=== PATIENT | female | born 1940 | race Caucasian/White ===

== ENCOUNTER 2023-10-16 07:41 | Emergency (ER) | payer MEDICARE, OTHER, SELFPAY ==
[2023-10-16] VITALS (21 sets, daily range): BP systolic 115–146; BP diastolic 55–78; PULSE 78–93; RESP 14–23; TEMP 36.8; O2SAT 93–98; BMI 25.6
[2023-10-16 08:10] LABS: Add Manual Diff / Slide Review NO; Basophils Absolute Auto 200 /uL (0-100); Basophils Percent Auto 1.2 % (0-2); Eosinophils Absolute Auto 100 /uL (0-450); Eosinophils Percent Auto 0.4 % (2-4); Hematocrit 35.4 % (36-46); Hemoglobin 12.2 g/dL (12.0-16.0); Lymphocytes Absolute Auto 1800 /uL (1100-4500); Lymphocytes Percent Auto 12.8 % (25-40); Mean Corpuscular HGB Conc 34.5 % (30-36); Mean Corpuscular Volume 87.1 fL (80-100); Monocytes Absolute Auto 400 /uL (0-900); Monocytes Percent Auto 2.8 % (3-14); Neutrophils Absolute Auto 11900 /uL (1500-7000); Neutrophils Percent Auto 82.8 % (50-75); Platelet Count 405 X10^3/uL (150-400); Red Blood Cell Count 4.06 X10^6/uL (4.0-5.2); Red Cell Distribution Width 12.5 % (11.6-14.8); White Blood Cell Count 14.3 X10^3/uL (4.5-11.0)
[2023-10-16] MEDS: ONDANSETRON 4 MG/2 ML INJ IV ×2 (08:12→09:20)
[2023-10-16 08:16] LABS: Alanine Aminotransferase 15 IU/L (<35); Albumin 4.3 g/dL (3.5-5.0); Albumin Globulin Ratio 1.2 (1.0-2.8); Alkaline Phosphatase 98 U/L (38-126); Aspartate Aminotransferase 28 IU/L (14-36); Blood Urea Nitrogen 24 mg/dL (7-17); Carbon Dioxide 24 mmol/L (22-32); Chloride 97 mmol/L (98-107); Estimated Glomerular Filt Rate > 60 mL/min (>60); Globulin 3.6 g/dL (1.7-4.1); Glucose 154 mg/dL (80-110); Potassium 4.3 mmol/L (3.4-5.1); Sodium 131 mmol/L (137-145); Total Protein 7.9 g/dL (6.3-8.2)
[2023-10-16 08:19] LABS: HEMOLYSIS 106 (0-50)
--- NOTE | 2023-10-16 08:21 | DI.CT.S_ITS ---
PROCEDURE: CT ABDOMEN PELVIS W CON INDICATIONS: vomiting TECHNIQUE: After the administration of intravenous contrast, axial sections acquired from the lung bases to the pubic symphysis. Coronal and sagittal reformats were performed. For radiation dose reduction, the following was used: automated exposure control, adjustment of mA and/or kV according to patient size. COMPARISON: None. FINDINGS: Image quality: Diagnostic. Lower Chest: Moderate to large hiatal hernia ABDOMEN: Liver: No solid mass. Gallbladder: Gallbladder surgically absent Biliary ducts: No biliary dilation. Pancreas: No ductal dilation. Spleen: Size is within normal limits. Adrenal Glands: No adrenal nodules. Kidneys and Ureters: No hydronephrosis. No solid mass. No complex renal cystic lesion which requires follow up. Stomach and Bowel: No evidence of obstruction. Prominent diverticula with acute diverticulitis of the descending colon and extending from the mid descending colon through the sigmoid colon. There is mild hyperemia surrounding descending colon without organized abscess or fluid collection. There is some adjacent small foci of air immediately along the colon which may represent small diverticulum versus contained perforation. There is no free air along the anterior abdominal wall or along the diaphragm. The appendix is normal Peritoneum: No free air. Ventral Wall: No significant ventral hernia. Abdominal Nodes: No retroperitoneal or mesenteric adenopathy by size criteria. Vessels: Aorta and inferior vena cava are normal in size. PELVIS: Pelvic Organs: Unremarkable. Bladder: No bladder wall thickening, accounting for underdistention. Bladder, correlate for instrumentation. Pelvic Nodes: No enlarged lymph nodes. Miscellaneous: No inguinal hernias are seen. Bones: No aggressive osseous abnormality. IMPRESSION: Acute diverticulitis of the sigmoid colon. Moderate hiatal hernia. Dictated by: James Dumont M.D. on 10/16/2023 at 8:20 Approved by: James Dumont M.D. on 10/16/2023 at 8:27
--- NOTE | 2023-10-16 08:21 | DI.RAD.S_ITS ---
PROCEDURE: XR CHEST 1V INDICATIONS: chest pain TECHNIQUE: One view of the chest was acquired. COMPARISON: None. FINDINGS: Surgical changes and devices: Surgical clips in the left chest wall. Lungs and pleura: Lungs are clear. No pleural effusions or pneumothorax. Mediastinum: Mediastinal contours appear normal. Heart size is normal. Bones and chest wall: No suspicious bony lesions. Overlying soft tissues appear unremarkable. IMPRESSION: No acute cardiopulmonary abnormality is seen. Dictated by: James Dumont M.D. on 10/16/2023 at 8:16 Approved by: James Dumont M.D. on 10/16/2023 at 8:19
[2023-10-16] MEDS: SODIUM CHLORIDE 0.9% 1,000 ML 1000 ML IV (08:24)
[2023-10-16] MEDS: PANTOPRAZOLE 40 MG VIAL IV (08:24)
--- NOTE | 2023-10-16 08:41 | ED_ITS ---
HPI - Nausea/Vomiting/Diarrhea General Chief complaint: Nausea/Vomiting/Diarrhea Stated complaint: vomitting cant keep anything down Time Seen by Provider: 10/16/23 08:10 Source: patient Mode of arrival: Family Vehicle History of Present Illness HPI Narrative: Patient is an 82-year-old female history of hypertension hyperlipidemia presenting today with nausea vomiting. She reports that she started throwing up middle last night has been unable to stop. No diarrhea. Denies any dizziness or lightheadedness still actively vomiting here in the ED. she reports that she has had a cholecystectomy but no other surgery. She denies any chest pain or palpitations no shortness of breath. But he is unable to stop vomiting Related Data Previous Rx's Medication Instructions Recorded amoxicillin 875 mg-potassium 1 tab PO BID #20 tabs 10/16/23 clavulanate 125 mg tablet amoxicillin 875 mg-potassium 1 tab PO BID #20 tabs 10/16/23 clavulanate 125 mg tablet prochlorperazine maleate 5 mg 5 mg PO Q8H PRN nausea and 10/16/23 tablet vomiting #10 tabs prochlorperazine maleate 5 mg 5 mg PO TID PRN nausea and 10/16/23 tablet (Compazine) vomiting #14 tabs Allergies Allergy/AdvReac Type Severity Reaction Status Date / Time metoclopramide [From Reglan] AdvReac Vomiting Verified 10/16/23 08:00 Patient History Social History Smoking Status: Never smoker Smoking Status: Never smoker alcohol intake frequency: 0-2 drinks per day Substance Use Type: does not use Exam Initial Vital Signs Initial Vital Signs: Vital Signs Temperature 98.3 F 10/16/23 07:56 Pulse Rate 78 10/16/23 07:56 Respiratory Rate 14 10/16/23 07:56 Blood Pressure 123/72 10/16/23 07:56 Pulse Oximetry 96 10/16/23 07:56 Oxygen Delivery Method Room Air 10/16/23 07:56 GENERAL: Alert 82-year-old female appears to not feel well actively dry heaving and vomiting and in no acute distress. HEENT: Head atraumatic,EOMI, pupils reactive, face symmetric, moist mucous membranes CARDIOVASCULAR: Regular rate and rhythm without murmurs, rubs or gallops. RESPIRATORY: Breath sounds equal bilaterally, no wheezes rales or rhonchi. ABDOMEN: Soft, soft nondistended diffusely mildly tender EXTREMITIES: Normal range of motion, no clubbing or edema. Neurovascularly intact NEUROLOGICAL: Alert and oriented x4.Normal gait and speech. SKIN: Warm, dry, no laceration, no petechiae, no rashes or lesions. Course Orders Ordered: ED Orders 10/16/23 09:24 Urine Culture Stat Urine Microscopic Stat Discontinued Medications Diphenhydramine HCl (Diphenhydramine 50 Mg/Ml Vial) 25 mg IV NOW ONE Stop: 10/16/23 11:55 Last Admin: 10/16/23 12:01 Dose: 25 mg Documented By: Sodium Chloride (Normal Saline 0.9%) 1,000 mls @ 1,000 mls/hr IV BOLUS ONE Stop: 10/16/23 09:21 Last Infusion: 10/16/23 09:33 Dose: Infused Documented By: Admin: 10/16/23 08:24 Dose: 1,000 mls/hr Documented By: Piperacillin Sod/Tazobactam (Sod 4.5 gm/ Sodium Chloride) 100 mls @ 200 mls/hr IV NOW ONE Stop: 10/16/23 09:53 Last Infusion: 10/16/23 11:10 Dose: Infused Documented By: Admin: 10/16/23 10:05 Dose: 200 mls/hr Documented By: Metronidazole (Flagyl) 500 mg in 100 mls @ 100 mls/hr IV NOW ONE Stop: 10/16/23 10:51 Last Infusion: 10/16/23 11:31 Dose: Infused Documented By: Admin: 10/16/23 10:28 Dose: 100 mls/hr Documented By: Lorazepam (Lorazepam 2 Mg/Ml Inj) 0.5 mg IV NOW ONE Stop: 10/16/23 09:14 Last Admin: 10/16/23 09:20 Dose: 0.5 mg Documented By: Ondansetron HCl (Ondansetron 4 Mg/2 Ml Inj) 4 mg IV NOW ONE Stop: 10/16/23 08:08 Last Admin: 10/16/23 08:12 Dose: 4 mg Documented By: Ondansetron HCl (Ondansetron 4 Mg/2 Ml Inj) 4 mg IV NOW ONE Stop: 10/16/23 09:15 Last Admin: 10/16/23 09:20 Dose: 4 mg Documented By: Pantoprazole Sodium (Pantoprazole 40 Mg Vial) 40 mg IV NOW ONE Stop: 10/16/23 08:22 Last Admin: 10/16/23 08:24 Dose: 40 mg Documented By: Prochlorperazine (Prochlorperazine 10 Mg/2 Ml Vial) 10 mg IV NOW ONE Stop: 10/16/23 11:55 Last Admin: 10/16/23 12:01 Dose: 10 mg Documented By: Vital Signs Vital signs: Vital Signs - 8 hr 10/16/23 10:25 10/16/23 10:25 10/16/23 10:30 Pulse Rate 93 H Respiratory Rate Blood Pressure 134/60 Pulse Oximetry 94 96 Oxygen Delivery Method 10/16/23 10:30 10/16/23 11:00 10/16/23 11:00 Pulse Rate 85 Respiratory Rate Blood Pressure 131/60 130/59 L Pulse Oximetry Oxygen Delivery Method 10/16/23 11:30 10/16/23 11:30 10/16/23 12:00 Pulse Rate 88 Respiratory Rate Blood Pressure 137/78 145/65 H Pulse Oximetry 95 Oxygen Delivery Method 10/16/23 12:00 10/16/23 12:30 10/16/23 12:31 Pulse Rate 89 89 Respiratory Rate 20 22 Blood Pressure 115/55 L Pulse Oximetry 96 94 Oxygen Delivery Method 10/16/23 12:31 10/16/23 13:00 10/16/23 13:28 Pulse Rate 89 89 85 Respiratory Rate 20 Blood Pressure Pulse Oximetry 94 96 Oxygen Delivery Method 10/16/23 13:28 10/16/23 13:30 10/16/23 13:30 Pulse Rate 89 Respiratory Rate 23 Blood Pressure 127/60 126/56 L Pulse Oximetry 95 Oxygen Delivery Method Room Air 10/16/23 14:00 10/16/23 14:00 10/16/23 14:30 Pulse Rate 83 85 Respiratory Rate 21 Blood Pressure 137/58 L Pulse Oximetry 95 96 Oxygen Delivery Method 10/16/23 14:30 Pulse Rate Respiratory Rate Blood Pressure 129/59 L Pulse Oximetry Oxygen Delivery Method MDM - Nausea/Vomiting/Diarrhea Lab Data 10/16/23 07:58 10/16/23 07:58 Labs: Lab Results 10/16/23 10/16/23 10/16/23 Range/Units 07:50 07:58 09:24 WBC 14.3 H (4.5-11.0) X10^3/uL RBC 4.06 (4.0-5.2) X10^6/uL Hgb 12.2 (12.0-16.0) g/dL Hct 35.4 L (36-46) % MCV 87.1 (80-100) fL MCH 30.0 (26-34) PG MCHC 34.5 (30-36) % RDW 12.5 (11.6-14.8) % Plt Count 405 H (150-400) X10^3/uL Neut % (Auto) 82.8 H (50-75) % Lymph % (Auto) 12.8 L (25-40) % Gaston % (Auto) 2.8 L (3-14) % Eos % (Auto) 0.4 L (2-4) % Baso % (Auto) 1.2 (0-2) % Neut # (Auto) 31530 H (4921-0435) /uL Lymph # (Auto) 1800 (5753-0319) /uL Gaston # (Auto) 400 (0-900) /uL Eos # (Auto) 100 (0-450) /uL Baso # (Auto) 200 H (0-100) /uL Sodium 131 L (137-145) mmol/L Potassium 4.3 (3.4-5.1) mmol/L Chloride 97 L (98-107) mmol/L Carbon Dioxide 24 (22-32) mmol/L BUN 24 H (7-17) mg/dL Creatinine 0.80 (0.52-1.04) mg/dL Estimated GFR > 60 (>60) mL/min BUN/Creatinine Ratio 30.0 H (6-22) Glucose 154 H (80-110) mg/dL Lactate 2.3 H (0.7-2.1) mmol/L Calcium 9.0 (8.4-10.2) mg/dL Total Bilirubin 1.0 (0.2-1.3) mg/dL AST 28 (14-36) IU/L ALT 15 (<35) IU/L Alkaline Phosphatase 98 (38-126) U/L Total Creatine Kinase 106 (30-135) U/L Troponin I < 0.012 (0.01-0.034) ng/mL Total Protein 7.9 (6.3-8.2) g/dL Albumin 4.3 (3.5-5.0) g/dL Globulin 3.6 (1.7-4.1) g/dL Albumin/Globulin Ratio 1.2 (1.0-2.8) Lipase 69 (23-300) U/L Urine RBC 1-5/hpf (0-5/HPF) Urine WBC 5-10/hpf H (0-5/HPF) Ur Squamous Epith Cells None seen (0-5/HPF) Urine Bacteria Many (>30) H (None) Ur Culture Indicated? Specimen cultured Vol Urine Centrifuged 10ml (spun) 10/16/23 Range/Units 10:26 WBC (4.5-11.0) X10^3/uL RBC (4.0-5.2) X10^6/uL Hgb (12.0-16.0) g/dL Hct (36-46) % MCV (80-100) fL MCH (26-34) PG MCHC (30-36) % RDW (11.6-14.8) % Plt Count (150-400) X10^3/uL Neut % (Auto) (50-75) % Lymph % (Auto) (25-40) % Gaston % (Auto) (3-14) % Eos % (Auto) (2-4) % Baso % (Auto) (0-2) % Neut # (Auto) (8411-9275) /uL Lymph # (Auto) (7348-9250) /uL Gaston # (Auto) (0-900) /uL Eos # (Auto) (0-450) /uL Baso # (Auto) (0-100) /uL Sodium (137-145) mmol/L Potassium (3.4-5.1) mmol/L Chloride (98-107) mmol/L Carbon Dioxide (22-32) mmol/L BUN (7-17) mg/dL Creatinine (0.52-1.04) mg/dL Estimated GFR (>60) mL/min BUN/Creatinine Ratio (6-22) Glucose (80-110) mg/dL Lactate 1.6 (0.7-2.1) mmol/L Calcium (8.4-10.2) mg/dL Total Bilirubin (0.2-1.3) mg/dL AST (14-36) IU/L ALT (<35) IU/L Alkaline Phosphatase (38-126) U/L Total Creatine Kinase (30-135) U/L Troponin I (0.01-0.034) ng/mL Total Protein (6.3-8.2) g/dL Albumin (3.5-5.0) g/dL Globulin (1.7-4.1) g/dL Albumin/Globulin Ratio (1.0-2.8) Lipase (23-300) U/L Urine RBC (0-5/HPF) Urine WBC (0-5/HPF) Ur Squamous Epith Cells (0-5/HPF) Urine Bacteria (None) Ur Culture Indicated? Vol Urine Centrifuged Urine Dip Bedside Urine Glucose Negative Bedside Urine Bilirubin - Negative Bedside Urine Ketone +/- 5 Urine Specific Kempner 1.015 Bedside Urine Occult Blood + Bedside Urine pH 7.0 Bedside Urine Protein - Negative Bedside Urine Urobilinogen - Negative Bedside Urine Nitrite - Negative Bedside Urine Leukocytes - Negative Esterase Imaging Data CT scan - abdomen/pelvis: Radiologist's Impression: PROCEDURE: CT ABDOMEN PELVIS W CON INDICATIONS: vomiting TECHNIQUE: After the administration of intravenous contrast, axial sections acquired from the lung bases to the pubic symphysis. Coronal and sagittal reformats were performed. For radiation dose reduction, the following was used: automated exposure control, adjustment of mA and/or kV according to patient size. COMPARISON: None. FINDINGS: Image quality: Diagnostic. Lower Chest: Moderate to large hiatal hernia ABDOMEN: Liver: No solid mass. Gallbladder: Gallbladder surgically absent Biliary ducts: No biliary dilation. Pancreas: No ductal dilation. Spleen: Size is within normal limits. Adrenal Glands: No adrenal nodules. Kidneys and Ureters: No hydronephrosis. No solid mass. No complex renal cystic lesion which requires follow up. Stomach and Bowel: No evidence of obstruction. Prominent diverticula with acute diverticulitis of the descending colon and extending from the mid descending colon through the sigmoid colon. There is mild hyperemia surrounding descending colon without organized abscess or fluid collection. There is some adjacent small foci of air immediately along the colon which may represent small diverticulum versus contained perforation. There is no free air along the anterior abdominal wall or along the diaphragm. The appendix is normal Peritoneum: No free air. Ventral Wall: No significant ventral hernia. Abdominal Nodes: No retroperitoneal or mesenteric adenopathy by size criteria. Vessels: Aorta and inferior vena cava are normal in size. PELVIS: Pelvic Organs: Unremarkable. Bladder: No bladder wall thickening, accounting for underdistention. Bladder, correlate for instrumentation. Pelvic Nodes: No enlarged lymph nodes. Miscellaneous: No inguinal hernias are seen. Bones: No aggressive osseous abnormality. IMPRESSION: Acute diverticulitis of the sigmoid colon. Moderate hiatal hernia. Dictated by: James Dumont M.D. on 10/16/2023 at 8:20 ECG Data Interpretation: EKG 1. Sinus rhythm rate 88 IL interval 188 QRS [address] changes no T- wave inversions EKG 2. Sinus rhythm QTC 445 MDM Narrative Medical decision making narrative: Patient 82-year-old female presents with persistent vomiting and abdominal pain. She continues to vomit here in the ED mild abdominal pain and discomfort. Blood work does show leukocytosis 14.3, hemoglobin 12.2 hematocrit 35.4 platelets 405, sodium 131 potassium 4.3 chloride 97 carbon dioxide 24 BUN 24 creatinine 0.8 glucose 154 initial lactate 2.3 with repeat of 1.6, bilirubin AST ALT lipase within normal limits troponin negative Imaging reviewed chest x-ray no acute cardiopulmonary process CT does show acute diverticulitis with moderate hiatal hernia EKG reviewed initial EKG did show slightly prolonged QTC after Zofran. Repeat EKGs showed improved QTC Patient is found to have acute diverticulitis without complication although she is persistently vomiting. She reports that she had extrapyramidal side effects previously. However today she tolerated Compazine and Benadryl very well. She is also given Ativan which also seem to work for awhile. Patient is now tolerating fluids. This time no need for admission. Discussed with and patient if not tolerating medication or fluids then she would need admission. Patient received Flagyl Zosyn Zofran Protonix Ativan Compazine Benadryl in the ED and finally feeling better. Would hold off on fluoroquinolone secondary to QT prolongation Discharge Plan Departure Patient Disposition: Home Clinical Impression: Diverticulitis Instructions: Diverticulitis Activity Restrictions/Additional Instructions: *You have been diagnosed with diverticulitis *What to do: At this time you do have diverticulitis. This should get better with antibiotics. You may need to stay on a liquid diet for couple of days but you may try food and increase diet as tolerated as you see fit *Continue to take medications as directed--> RIte aid emani coronel Augmentin 875 twice a day for 10 days Compazine 10 mg every 6 hours for nausea or vomiting *Follow up with your primary care provider in 2-3 days or call [phone] *Return to ER if you should have persistent vomiting increasing pain not tolerating medication or any new, worsening or concerning symptoms Prescriptions: New amoxicillin-pot clavulanate 875-125 mg tablet 1 tab PO BID Qty: 20 0RF prochlorperazine maleate 5 mg tablet 5 mg PO Q8H PRN (Reason: nausea and vomiting) Qty: 10 0RF amoxicillin-pot clavulanate 875-125 mg tablet 1 tab PO BID Qty: 20 0RF prochlorperazine maleate [Compazine] 5 mg tablet 5 mg PO TID PRN (Reason: nausea and vomiting) Qty: 14 0RF Referrals: Matteo Begum MD [Primary Care Provider] - Stand Alone Forms: Patient Portal/API
[2023-10-16] MEDS: LORazepam 2 MG/ML INJ 0.5 MG IV (09:20)
[2023-10-16 09:27] LABS: Creatine Kinase 106 U/L (30-135); Lactate (Lactic Acid) 2.3 mmol/L (0.7-2.1); Lipase 69 U/L (23-300)
[2023-10-16 09:39] LABS: Troponin I < 0.012 ng/mL (0.01-0.034)
[2023-10-16 09:45] LABS: Bacteria Urine Many (>30); Culture Indicated Urine Specimen Cultured; RBC Urine 1-5/HPF (0-5/HPF); Squamous Epithelial Cell Urine None Seen (0-5/HPF); Urine Volume 10mL (spun); WBC Urine 5-10/HPF (0-5/HPF)
[2023-10-16] MEDS: PIPERACILLIN/TAZO 4.5 GM in SODIUM CHLORIDE 0.9% 100 ML IV (10:05)
[2023-10-16] MEDS: metroNIDAZOLE 500 MG/100 ML PIGGYBACK 100 MG IV (10:28)
[2023-10-16 10:51] LABS: Lactate 2HR (Lactic Acid Rflx) 1.6 mmol/L (0.7-2.1)
[2023-10-16] MEDS: PROCHLORPERAZINE 10 MG/2 ML VIAL IV (12:01)
[2023-10-16] MEDS: diphenhydrAMINE 50 MG/ML VIAL 25 MG IV (12:01)
== END 2023-10-16 15:08 | disposition home or self-care (01) ==
PROVIDERS: Emergency Provider Emergency Medicine; PCP Family Medicine
DX: K57.92 Diverticulitis of intestine, part unspecified, without perforation or abscess without bleeding (principal); R10.9 Unspecified abdominal pain
CPT/HCPCS: 36415; 71045; 74177; 80053; 81003; 81015; 82550; 83605; 83690; 84484; 85025; 87077; 87086; 87186; 93005; 96361; 96365; 96368; 96375; 96376; 99284; C9113; J0780; J1200; J2060; J2405; J2543; Q9967

== ENCOUNTER 2023-10-18 15:16 | Emergency (ER) | payer MEDICARE, OTHER, SELFPAY ==
[2023-10-18 15:41] VITALS: BP 126/59; PULSE 85; RESP 17; TEMP 36.5; O2SAT 95; BMI 27.1
[2023-10-18 18:51] VITALS: BP 136/83; PULSE 87; RESP 20; O2SAT 96
--- NOTE | 2023-10-18 19:00 | ED.RECABL ---
HPI - Recheck/Abnormal Lab/Rx General Chief Complaint: Recheck/Abnormal Lab/Rx Stated Complaint: Meds from ER yesterday produces diarrhea. Time Seen by Provider: 10/18/23 18:08 Source: patient Mode of arrival: Ambulatory History of Present Illness HPI narrative: Patient is an 82-year-old female he was seen in the emergency department approximately 48 hours ago for vomiting. She had a workup in his CT scan which was concerning for diverticulitis. She was started on Augmentin. Was also sent home on Compazine. She states she has no longer vomiting. She has no abdominal pain. No urinary symptoms. No fevers. She states that she was taken 2 doses of the Augmentin and after the dose this morning and after eating this morning she developed some diarrhea. This happened again after eating lunch today. She is here because of the diarrhea. No abdominal distention. Related Data Previous Rx's Medication Instructions Recorded amoxicillin 875 mg-potassium 1 tab PO BID #20 tabs 10/16/23 clavulanate 125 mg tablet amoxicillin 875 mg-potassium 1 tab PO BID #20 tabs 10/16/23 clavulanate 125 mg tablet prochlorperazine maleate 5 mg 5 mg PO Q8H PRN nausea and 10/16/23 tablet vomiting #10 tabs prochlorperazine maleate 5 mg 5 mg PO TID PRN nausea and 10/16/23 tablet (Compazine) vomiting #14 tabs Allergies Allergy/AdvReac Type Severity Reaction Status Date / Time metoclopramide [From Reglan] AdvReac Vomiting Verified 10/18/23 15:41 Review of Systems Constitutional Constitutional: Reports system reviewed and no additional complaints, except as documented Cardiovascular Cardiovascular: Reports system reviewed and no additional complaints, except as documented Respiratory Respiratory: Reports system reviewed and no additional complaints, except as documented Gastrointestinal Gastrointestinal: Reports system reviewed and no additional complaints, except as documented Genitourinary Genitourinary: Reports system reviewed and no additional complaints, except as documented Neurologic Neurologic: Reports system reviewed and no additional complaints, except as documented Hematologic/Lymphatic On Anticoagulants: No Patient History Social History Smoking Status: Never smoker Smoking Status: Never smoker alcohol intake frequency: 0-2 drinks per day Substance Use Type: does not use Exam Initial Vital Signs Initial Vital Signs: Vital Signs Temperature 97.7 F 10/18/23 15:41 Pulse Rate 85 10/18/23 15:41 Respiratory Rate 17 10/18/23 15:41 Blood Pressure 126/59 L 10/18/23 15:41 Pulse Oximetry 95 10/18/23 15:41 Oxygen Delivery Method Room Air 10/18/23 15:41 Const General: cooperative, comfortable and No ill appearing HENMT Head: normal to inspection and normocephalic Resp Effort & Inspection: normal respiratory effort Cardio Rate: regular rate GI Inspection: normal to inspection and non-distended Palpation: soft and No tender Skin General: no rashes or lesions noted Neuro General: patient alert and patient awake Course Vital Signs Vital signs: Vital Signs - 8 hr 10/18/23 18:51 Pulse Rate 87 Respiratory Rate 20 Blood Pressure 136/83 Pulse Oximetry 96 Oxygen Delivery Method Room Air MDM - Recheck/Abnormal Lab/Rx MDM Narrative Medical decision making narrative: Patient has multiple potential reasons for the diarrhea. She has a diagnosis of diverticulitis which can cause diarrhea. She was started on antibiotics which can cause diarrhea and her initial presenting symptoms was vomiting which could be related to a unrelated GI illness that can then the 2 diarrhea. She has a benign abdominal exam today. Is afebrile. Is well hydrated. She has no abdominal pain. Her nausea has actually resolved. There is new evidence that shows that uncomplicated diverticulitis could potentially be treated without antibiotics. Based on the CT scan yesterday she does not show any signs of abscesses or perforations. There was no indication for repeat CT scan today. I had a discussion with her regarding options. We discussed how she can stop taking the antibiotics and potentially this would help with the diarrhea. We discussed the risks and benefits of this. We also discussed the risks and benefits of continuing the antibiotic. Plan will be for her to continue the antibiotic and take an antidiarrheal medicine. If her symptoms significantly worsen she can return to the emergency department. If her symptoms improve she will continue with the current course. She was given return precautions. She expressed understanding and agreement. Discharge Plan Departure Patient Disposition: Home Clinical Impression: Diarrhea Instructions: Diarrhea Activity Restrictions/Additional Instructions: I recommend that you continue with the antibiotics for the next 24 hours. If your diarrhea has not improved during the time it is reasonable to stop taking the antibiotic. You can also try antidiarrheal medicines such as Imodium/loperamide. If your symptoms worsen or if you develop fevers or abdominal pain please return to the emergency department for evaluation. Prescriptions: No Action amoxicillin-pot clavulanate 875-125 mg tablet 1 tab PO BID Qty: 20 0RF prochlorperazine maleate 5 mg tablet 5 mg PO Q8H PRN (Reason: nausea and vomiting) Qty: 10 0RF amoxicillin-pot clavulanate 875-125 mg tablet 1 tab PO BID Qty: 20 0RF prochlorperazine maleate [Compazine] 5 mg tablet 5 mg PO TID PRN (Reason: nausea and vomiting) Qty: 14 0RF Referrals: Matteo Begum MD [Primary Care Provider] - Stand Alone Forms: Patient Portal/API
== END 2023-10-18 19:10 | disposition home or self-care (01) ==
PROVIDERS: Emergency Provider Emergency Medicine; PCP Family Medicine
DX: R19.7 Diarrhea, unspecified (principal)
CPT/HCPCS: 99281

== ENCOUNTER 2023-10-20 14:26 | Inpatient (IN) | payer MEDICARE, OTHER, SELFPAY ==
[2023-10-20] VITALS (20 sets, daily range): BP systolic 109–169; BP diastolic 51–71; PULSE 80–99; RESP 17–27; TEMP 36.2–37.2; O2SAT 91–98; BMI 26.2; BMI 25.2
[2023-10-20] MEDS: ONDANSETRON 4 MG/2 ML INJ IV ×2 (14:49→18:30)
[2023-10-20 15:13] LABS: Add Manual Diff / Slide Review NO; Basophils Absolute Auto 100 /uL (0-100); Basophils Percent Auto 0.3 % (0-2); Eosinophils Absolute Auto 100 /uL (0-450); Eosinophils Percent Auto 0.6 % (2-4); Hematocrit 38.2 % (36-46); Lymphocytes Absolute Auto 1700 /uL (1100-4500); Lymphocytes Percent Auto 9.3 % (25-40); Mean Corpuscular HGB Conc 34.1 % (30-36); Monocytes Absolute Auto 800 /uL (0-900); Monocytes Percent Auto 4.6 % (3-14); Neutrophils Absolute Auto 15300 /uL (1500-7000); Neutrophils Percent Auto 85.2 % (50-75); Platelet Count 403 X10^3/uL (150-400); Red Blood Cell Count 4.35 X10^6/uL (4.0-5.2); Red Cell Distribution Width 12.6 % (11.6-14.8); White Blood Cell Count 17.9 X10^3/uL (4.5-11.0)
[2023-10-20 15:17] LABS: BUN Creatinine Ratio 18.9 (6-22); Blood Urea Nitrogen 14 mg/dL (7-17); Calcium 9.5 mg/dL (8.4-10.2); Carbon Dioxide 24 mmol/L (22-32); Chloride 98 mmol/L (98-107); Estimated Glomerular Filt Rate > 60 mL/min (>60); Glucose 132 mg/dL (80-110); HEMOLYSIS 138 (0-50); Magnesium 1.8 mg/dL (1.6-2.3); Potassium 4.2 mmol/L (3.4-5.1); Sodium 131 mmol/L (137-145)
--- NOTE | 2023-10-20 17:11 | PC.NURSE ---
Feels like diverticulitis. N/V/abd pain
--- NOTE | 2023-10-20 18:01 | ED.NAVMDI ---
HPI - Nausea/Vomiting/Diarrhea General Chief complaint: Nausea/Vomiting/Diarrhea Stated complaint: vomiting, diarrhea Time Seen by Provider: 10/20/23 18:01 Source: patient and family Mode of arrival: Family Vehicle History of Present Illness HPI Narrative: 82-year-old woman with history of hypertension hyperlipidemia seen initially on October 15 diagnosed with diverticulitis started on Augmentin, returned on October 17 with complaints of diarrhea. Reassurance was given with instructions to continue amoxicillin. She comes back today complaining of persistent vomiting for which she has been taking Compazine. She has had multiple episodes diarrhea throughout the day all of which seems to be getting worse. She does not complain of significant abdominal pain. She has not noticed blood in vomit or diarrhea. She is becoming increasingly weak. No chest pain, palpitations, headache Related Data Home Medications Medication Instructions Recorded Confirmed atenolol 50 mg tablet 50 mg PO BID 10/20/23 10/20/23 fluticasone propionate 50 1 spray intranasal DAILY 10/20/23 10/20/23 mcg/actuation nasal spray,suspension lovastatin 40 mg tablet 40 mg PO DAILY 10/20/23 10/20/23 omeprazole 20 mg capsule,delayed 20 mg PO QPM 10/20/23 10/20/23 release telmisartan 80 mg tablet 80 mg PO DAILY blood pressure 10/20/23 10/20/23 trazodone 100 mg tablet 100 mg PO ONCE PM 10/20/23 10/20/23 Previous Rx's Medication Instructions Recorded amoxicillin 875 mg-potassium 1 tab PO BID #20 tabs 10/16/23 clavulanate 125 mg tablet prochlorperazine maleate 5 mg 5 mg PO TID PRN nausea and 10/16/23 tablet (Compazine) vomiting #14 tabs Allergies Allergy/AdvReac Type Severity Reaction Status Date / Time metoclopramide [From Reglan] AdvReac Vomiting Verified 10/18/23 15:41 Review of Systems Review of Systems Narrative: Pertinent positive and negative findings as per HPI Patient History Medical History (Updated 10/20/23 @ 20:08 by Sandy Rushing MD) Hyperlipidemia Hypertension Surgical History (Updated 10/20/23 @ 21:12 by Kary Posey DO) History of cholecystectomy Social History household members: spouse Smoking Status: Never smoker alcohol intake: current Smoking Status: Never smoker alcohol intake frequency: 0-2 drinks per day Substance Use Type: does not use Exam Initial Vital Signs Initial Vital Signs: Vital Signs Temperature 97.1 F L 10/20/23 14:32 Pulse Rate 82 10/20/23 14:32 Respiratory Rate 18 10/20/23 14:32 Blood Pressure 150/65 H 10/20/23 14:32 Pulse Oximetry 97 10/20/23 14:32 Oxygen Delivery Method Room Air 10/20/23 14:32 General: Ill-appearing, weak, Able to give a complete and coherent history. HEENT: Dry mucous membranes, normal sclera with reactive pupils, Neck: No JVD, supple Respiratory: Lungs are clear to auscultation, no wheezing no rales no rhonchi. Full and symmetrical air movement Cardiac: Regular rate and rhythm no murmurs no bruits Abdomen: Soft, nontender, no guarding or rebound no flank pain Skin: Pale, dry Neurologic: Globally weak Grossly neurologically intact with no obvious asymmetries or abnormalities Extremities: No trauma, well perfused, no lower extremity edema Psych: Cooperative, appropriate insight and affect Course Orders Ordered: ED Orders 10/20/23 18:09 CT abdomen pelvis w con Stat 10/20/23 18:13 GI Panel (Film Array) Stat 10/20/23 18:44 Blood Culture Stat 10/20/23 19:05 Lactate (Lactic Acid) Stat 10/20/23 19:22 Urine Microscopic Stat Acetaminophen (Acetaminophen 325 Mg Tablet) 650 mg PO Q6H PRN PRN Reason: Fever/Mild Pain (1-3) Atorvastatin Calcium (Atorvastatin 20 Mg Tablet) 10 mg PO BEDTIME NELLA Enoxaparin Sodium (Enoxaparin 40 Mg/0.4 Ml Syringe) 40 mg SUBCUT DAILY NELLA Fluticasone Propionate (Fluticasone 120 [place]/16 Gm [place].Susp) 1 spray NASAL DAILY NELLA Guaifenesin (Guaifenesin Solution 100 Mg/5 Ml Udc) 100 mg PO Q4HR PRN PRN Reason: Cough Last Admin: 10/21/23 01:42 Dose: 100 mg Documented By: SH Hydromorphone HCl (Hydromorphone 0.5 Mg Inj) 0.5 mg IV Q15MIN PRN PRN Reason: Pain, Hydromorphone HCl (Hydromorphone 0.5 Mg Inj) 0.5 mg IV Q4H PRN PRN Reason: Pain, Severe (7-10) Sodium Chloride (Normal Saline 0.9%) 1,000 mls @ 150 mls/hr IV CONT [facility] Last Infusion: 10/20/23 21:50 Dose: 150 mls/hr Documented By: Admin: 10/20/23 20:13 Dose: 150 mls/hr Documented By: LV Sodium Chloride (Normal Saline 0.9%) 1,000 mls @ 100 mls/hr IV CONT [facility] Last Admin: 10/20/23 23:14 Dose: 100 mls/hr Documented By: ABDOULAYE Piperacillin Sod/Tazobactam (Sod 3.375 gm/ Sodium Chloride) 100 mls @ 25 mls/hr IV Q8H [facility] Last Admin: 10/21/23 01:33 Dose: 25 mls/hr Documented By: ABDOULAYE Naloxone HCl (Naloxone 0.4 Mg/Ml Vial) 0.2 mg IV Q2MIN PRN PRN Reason: Opiate Reversal Ondansetron HCl (Ondansetron 4 Mg Odt) 4 mg SL NOW PRN PRN Reason: Nausea And Vomiting Ondansetron HCl (Ondansetron 4 Mg/2 Ml Inj) 4 mg IV NOW PRN PRN Reason: Nausea And Vomiting Last Admin: 10/20/23 14:49 Dose: 4 mg Documented By: LACI Ondansetron HCl (Ondansetron 4 Mg/2 Ml Inj) 4 mg IV Q8HR PRN PRN Reason: Nausea And Vomiting Pantoprazole Sodium (Pantoprazole Dr 20 Mg Tablet) 20 mg PO 0600 [facility] Sodium Chloride (Sodium Chloride 0.9% Flush) 10 ml IV BID [facility] Sodium Chloride (Sodium Chloride 0.9% Flush) 10 ml IV PRN PRN PRN Reason: Flush Trazodone HCl (Trazodone 50 Mg Tablet) 100 mg PO BEDTIME [facility] Discontinued Medications Diphenhydramine HCl (Diphenhydramine 50 Mg/Ml Vial) 25 mg IV NOW ONE Stop: 10/20/23 20:03 Last Admin: 10/20/23 20:12 Dose: 25 mg Documented By: LV Piperacillin Sod/Tazobactam (Sod 4.5 gm/ Sodium Chloride) 100 mls @ 200 mls/hr IV NOW ONE Stop: 10/20/23 18:10 Last Infusion: 10/20/23 19:21 Dose: Infused Documented By: Admin: 10/20/23 18:28 Dose: 200 mls/hr Documented By: DECLAN Sodium Chloride (Normal Saline 0.9%) 1,000 mls @ 1,000 mls/hr IV BOLUS ONE Stop: 10/20/23 19:12 Last Infusion: 10/20/23 19:42 Dose: Infused Documented By: Admin: 10/20/23 18:29 Dose: 1,000 mls/hr Documented By: DECLAN Morphine Sulfate (Morphine 4 Mg/Ml Inj) 4 mg IV NOW ONE Stop: 10/20/23 17:23 Last Admin: 10/20/23 18:33 Dose: Not Given Documented By: DECLAN Non-Formulary Medication (Lovastatin) 40 mg PO DAILY NELLA Non-Formulary Medication (Omeprazole) 20 mg PO QPM NELLA Non-Formulary Medication (Trazodone) 100 mg PO ONCE PM NELLA Ondansetron HCl (Ondansetron 4 Mg/2 Ml Inj) 4 mg IV NOW ONE Stop: 10/20/23 18:14 Last Admin: 10/20/23 18:30 Dose: 4 mg Documented By: DECLAN Pantoprazole Sodium (Pantoprazole Dr 20 Mg Tablet) 20 mg PO QPM NELLA Prochlorperazine (Prochlorperazine 10 Mg/2 Ml Vial) 10 mg IV NOW ONE Stop: 10/20/23 20:03 Last Admin: 10/20/23 20:12 Dose: 10 mg Documented By: LV Vital Signs Vital signs: Vital Signs - 8 hr 10/20/23 18:00 10/20/23 18:00 10/20/23 18:32 Pulse Rate 84 89 Respiratory Rate 25 H Blood Pressure 141/65 H Pulse Oximetry 91 93 Oxygen Delivery Method 10/20/23 19:00 10/20/23 19:20 10/20/23 19:20 Pulse Rate 88 91 H Respiratory Rate 23 Blood Pressure 135/61 Pulse Oximetry 95 Oxygen Delivery Method Room Air 10/20/23 19:30 10/20/23 19:30 10/20/23 19:51 Pulse Rate 92 H 93 H Respiratory Rate 19 20 Blood Pressure 127/60 Pulse Oximetry 94 93 Oxygen Delivery Method Room Air Room Air 10/20/23 19:51 10/20/23 20:00 10/20/23 20:12 Pulse Rate 94 H 93 H Respiratory Rate 18 Blood Pressure 169/58 H 169/58 H Pulse Oximetry 97 Oxygen Delivery Method 10/20/23 20:30 Pulse Rate 97 H Respiratory Rate 17 Blood Pressure Pulse Oximetry 93 Oxygen Delivery Method MDM - Nausea/Vomiting/Diarrhea Lab Data 10/20/23 14:46 10/20/23 14:46 Labs: Lab Results 10/20/23 10/20/23 10/20/23 Range/Units 14:46 14:46 19:05 WBC 17.9 H (4.5-11.0) X10^3/uL RBC 4.35 (4.0-5.2) X10^6/uL Hgb 13.0 (12.0-16.0) g/dL Hct 38.2 (36-46) % MCV 88.0 (80-100) fL MCH 30.0 (26-34) PG MCHC 34.1 (30-36) % RDW 12.6 (11.6-14.8) % Plt Count 403 H (150-400) X10^3/uL Neut % (Auto) 85.2 H (50-75) % Lymph % (Auto) 9.3 L (25-40) % Real % (Auto) 4.6 (3-14) % Eos % (Auto) 0.6 L (2-4) % Baso % (Auto) 0.3 (0-2) % Neut # (Auto) 73940 H (2878-9224) /uL Lymph # (Auto) 1700 (5505-0152) /uL Real # (Auto) 800 (0-900) /uL Eos # (Auto) 100 (0-450) /uL Baso # (Auto) 100 (0-100) /uL Sodium 131 L (137-145) mmol/L Potassium 4.2 (3.4-5.1) mmol/L Chloride 98 (98-107) mmol/L Carbon Dioxide 24 (22-32) mmol/L BUN 14 (7-17) mg/dL Creatinine 0.74 (0.52-1.04) mg/dL Estimated GFR > 60 (>60) mL/min BUN/Creatinine Ratio 18.9 (6-22) Glucose 132 H (80-110) mg/dL Lactate 1.4 (0.7-2.1) mmol/L Calcium 9.5 (8.4-10.2) mg/dL Magnesium 1.8 1.8 (1.6-2.3) mg/dL Urine RBC (0-5/HPF) Urine WBC (0-5/HPF) Ur Squamous Epith Cells (0-5/HPF) Ur Transition Epith Cell (0-5/HPF) Ur Renal Epithelial Cell (0-1/HPF) Urine Bacteria (None) Ur Culture Indicated? Vol Urine Centrifuged 10/20/23 Range/Units 19:22 WBC (4.5-11.0) X10^3/uL RBC (4.0-5.2) X10^6/uL Hgb (12.0-16.0) g/dL Hct (36-46) % MCV (80-100) fL MCH (26-34) PG MCHC (30-36) % RDW (11.6-14.8) % Plt Count (150-400) X10^3/uL Neut % (Auto) (50-75) % Lymph % (Auto) (25-40) % Real % (Auto) (3-14) % Eos % (Auto) (2-4) % Baso % (Auto) (0-2) % Neut # (Auto) (8734-9427) /uL Lymph # (Auto) (7190-3504) /uL Real # (Auto) (0-900) /uL Eos # (Auto) (0-450) /uL Baso # (Auto) (0-100) /uL Sodium (137-145) mmol/L Potassium (3.4-5.1) mmol/L Chloride (98-107) mmol/L Carbon Dioxide (22-32) mmol/L BUN (7-17) mg/dL Creatinine (0.52-1.04) mg/dL Estimated GFR (>60) mL/min BUN/Creatinine Ratio (6-22) Glucose (80-110) mg/dL Lactate (0.7-2.1) mmol/L Calcium (8.4-10.2) mg/dL Magnesium (1.6-2.3) mg/dL Urine RBC 0-1/hpf (0-5/HPF) Urine WBC 0-1/hpf (0-5/HPF) Ur Squamous Epith Cells 0-1 /hpf (0-5/HPF) Ur Transition Epith Cell None seen (0-5/HPF) Ur Renal Epithelial Cell 5-10/hpf H (0-1/HPF) Urine Bacteria None seen (None) Ur Culture Indicated? Cult not indicated Vol Urine Centrifuged 10ml (spun) Urine Dip Bedside Urine Glucose Negative Bedside Urine Bilirubin - Negative Bedside Urine Ketone +/- 5 Urine Specific [place] 1.010 Bedside Urine Occult Blood +/- Bedside Urine pH 7.5 Bedside Urine Protein - Negative Bedside Urine Urobilinogen - Negative Bedside Urine Nitrite - Negative Bedside Urine Leukocytes - Negative Esterase Imaging Data CT scan - abdomen/pelvis: Radiologist's Impression: PROCEDURE: CT ABDOMEN PELVIS W CON INDICATIONS: progressive pain and leukocytosis since 10/15 diverticulitis TECHNIQUE: After the administration of intravenous contrast, axial sections acquired from the lung bases to the pubic symphysis. Coronal and sagittal reformats were performed. For radiation dose reduction, the following was used: automated exposure control, adjustment of mA and/or kV according to patient size. COMPARISON: [facility], CT, CT ABDOMEN PELVIS W CON, 10/16/2023, 8:30. FINDINGS: Image quality: Diagnostic. Lower Chest: Mild cardiomegaly. Moderate-sized hiatal hernia containing the proximal corner of the stomach. Bibasilar atelectatic changes. ABDOMEN: Liver: Mild steatosis. No solid mass. Gallbladder: Surgically absent. Biliary ducts: Appropriate biliary tree caliber post cholecystectomy. Pancreas: No ductal dilation. Spleen: Size is within normal limits. Adrenal Glands: No adrenal nodules. Kidneys and Ureters: Symmetric enhancement. No nephrolithiasis or hydronephrosis. No hydroureter. Stomach and Bowel: Persistent moderate wall thickening and inflammation involving the distal descending and proximal sigmoid colon in the setting of numerous diverticula. No extraluminal gas or focal drainable fluid collection. Diverticula throughout much of the proximal colon. Stomach and small bowel loops are otherwise normal. Peritoneum: Persistent left lower quadrant fascial thickening and inflammation. No free fluid or free intraperitoneal air. No focal abscess. Ventral Wall: No significant ventral hernia. Abdominal Nodes: No retroperitoneal or mesenteric adenopathy by size criteria. Vessels: The abdominal aorta, IVC, and portal vein are of normal caliber. PELVIS: Pelvic Organs: Anteverted uterus with fluid in the endometrium. No adnexal masses. Bladder: Normal. Pelvic Nodes: No enlarged lymph nodes. Miscellaneous: No inguinal hernias are seen. Bones: No aggressive osseous abnormality. IMPRESSION: Persistent and fairly similar findings of acute distal descending and sigmoid diverticulitis. No evidence of complication. Fluid in the endometrial canal, not typical for patient's age. Consider pelvic ultrasound once patient's acute illness has resolved. Mild hepatic steatosis. Moderate-sized hiatal hernia. Dictated by: Deisy Han M.D. on 10/20/2023 at 19:16 MDM Narrative Medical decision making narrative: CC: Recent diagnosis with diverticulitis, persistent vomiting and diarrhea Complicating co-morbidities: Hypertension hyperlipidemia Data collected from: patient, has been Medical records reviewed: Notes and imaging from related visits October 15 and October 17 are reviewed Differential considered: Amoxicillin allergy, diverticular abscess, Clostridium difficile Exam documented above, pertinent findings include: Patient is slightly dehydrated, weak appears to feel unwell but she does not have an acute surgical abdomen on physical exam Lab Test results independently reviewed as above. Pertinent findings: White count is increased from 14.3 to 17.9 Chemistries are reassuring with normal creatinine Magnesium is appropriate Imaging studies independently reviewed: CT scan done on October 15 shows Prominent diverticula with acute diverticulitis of the descending colon and extending from the mid descending colon through the sigmoid colon. There is mild hyperemia surrounding descending colon without organized abscess or fluid collection. There is some adjacent small foci of air immediately along the colon which may represent small diverticulum versus contained perforation. There is no free air along the anterior abdominal wall or along the diaphragm. Consultations: Treatments: Fluids, antibiotics, antiemetics Re-evaluations: Continued persistent vomiting after 8 mg of Zofran. Patient has an allergy to Reglan. Discussion: 82-year-old woman with persistent vomiting significant diarrhea and continued diverticulitis without obvious abscess or perforation. With the intractable vomiting and diarrhea will plan on hospital admission. Patient steadily has diverticulitis. Stool PCR panel is currently pending. We will try Compazine and Benadryl to see if this is helpful with nausea. I am wondering if she is actually having intractable nausea from amoxicillin. I have already given her piperacillin but it may be appropriate to change her to Levaquin and Flagyl now that additional CT results are back. We will discuss with the hospitalist service. At this time there is no evidence of acute kidney injury, sepsis, bowel perforation or acute surgical abdomen Discharge Plan Departure Patient Disposition: Admitted as Observation Clinical Impression: Diverticulitis, Intractable vomiting, Acute UTI Diarrhea Qualifiers: Diarrhea type: unspecified type Qualified Code(s): R19.7 - Diarrhea, unspecified Admit Date/Time: 10/20/23 20:48 Admit Provider: Kary Posey
--- NOTE | 2023-10-20 18:09 | DI.CT.S_ITS ---
PROCEDURE: CT ABDOMEN PELVIS W CON INDICATIONS: progressive pain and leukocytosis since 10/15 diverticulitis TECHNIQUE: After the administration of intravenous contrast, axial sections acquired from the lung bases to the pubic symphysis. Coronal and sagittal reformats were performed. For radiation dose reduction, the following was used: automated exposure control, adjustment of mA and/or kV according to patient size. COMPARISON: [facility], CT, CT ABDOMEN PELVIS W CON, 10/16/2023, 8:30. FINDINGS: Image quality: Diagnostic. Lower Chest: Mild cardiomegaly. Moderate-sized hiatal hernia containing the proximal corner of the stomach. Bibasilar atelectatic changes. ABDOMEN: Liver: Mild steatosis. No solid mass. Gallbladder: Surgically absent. Biliary ducts: Appropriate biliary tree caliber post cholecystectomy. Pancreas: No ductal dilation. Spleen: Size is within normal limits. Adrenal Glands: No adrenal nodules. Kidneys and Ureters: Symmetric enhancement. No nephrolithiasis or hydronephrosis. No hydroureter. Stomach and Bowel: Persistent moderate wall thickening and inflammation involving the distal descending and proximal sigmoid colon in the setting of numerous diverticula. No extraluminal gas or focal drainable fluid collection. Diverticula throughout much of the proximal colon. Stomach and small bowel loops are otherwise normal. Peritoneum: Persistent left lower quadrant fascial thickening and inflammation. No free fluid or free intraperitoneal air. No focal abscess. Ventral Wall: No significant ventral hernia. Abdominal Nodes: No retroperitoneal or mesenteric adenopathy by size criteria. Vessels: The abdominal aorta, IVC, and portal vein are of normal caliber. PELVIS: Pelvic Organs: Anteverted uterus with fluid in the endometrium. No adnexal masses. Bladder: Normal. Pelvic Nodes: No enlarged lymph nodes. Miscellaneous: No inguinal hernias are seen. Bones: No aggressive osseous abnormality. IMPRESSION: Persistent and fairly similar findings of acute distal descending and sigmoid diverticulitis. No evidence of complication. Fluid in the endometrial canal, not typical for patient's age. Consider pelvic ultrasound once patient's acute illness has resolved. Mild hepatic steatosis. Moderate-sized hiatal hernia. Dictated by: Deisy Han M.D. on 10/20/2023 at 19:16 Approved by: Deisy Han M.D. on 10/20/2023 at 19:22
[2023-10-20] MEDS: PIPERACILLIN/TAZO 4.5 GM in SODIUM CHLORIDE 0.9% 100 ML IV (18:28)
[2023-10-20] MEDS: SODIUM CHLORIDE 0.9% 1,000 ML 1000 ML IV (18:29)
--- NOTE | 2023-10-20 19:16 | PC.NURSE ---
Pt denies abd pain at this time; states persistent nausea from ongoing diverticulitis
[2023-10-20 19:24] LABS: Lactate (Lactic Acid) 1.4 mmol/L (0.7-2.1)
[2023-10-20 19:48] LABS: Bacteria Urine None Seen; RBC Urine 0-1/HPF (0-5/HPF); Squamous Epithelial Cell Urine 0-1 /HPF (0-5/HPF); Urine Volume 10mL (spun); WBC Urine 0-1/HPF (0-5/HPF)
[2023-10-20 19:49] LABS: Culture Indicated Urine Cult Not Indicated; Renal Epithelial Cells Urine 5-10/HPF (0-1/HPF); Transitional Epi Cells Urine None Seen (0-5/HPF)
--- NOTE | 2023-10-20 19:59 | PC.NURSE ---
19:45 patient still nauseated, dry heaving. Morro Rushing notified, no new orders at this time. Patient's head elevated, wash cloth provided.
[2023-10-20] MEDS: diphenhydrAMINE 50 MG/ML VIAL 25 MG IV (20:12)
[2023-10-20] MEDS: PROCHLORPERAZINE 10 MG/2 ML VIAL IV (20:12)
[2023-10-20] MEDS: SODIUM CHLORIDE 0.9% 1,000 ML 150 ML IV (20:13)
--- NOTE | 2023-10-20 21:08 | PM.HP.1 ---
History of Present Illness History of Present Illness Date Patient Seen: 10/20/23 Date of Onset of Symptoms: 10/15/23 Chief complaint: vomiting, diarrhea Narrative: Sofia Mercer 82 female with PMH HTN, HLD presented with persistent diarrhea, nausea vomiting. Nausea, nonbloody nonbilious emesis started 10/14 in the middle of the night. Presented to ED, diagnosed with acute sigmoid diverticulitis and started on Augmentin, compazine. Returned to ED 10/17 for onset of diarrhea post antibiotic x2 doses. Started after eating breakfast x2 episodes. Nonbloody stool without abdominal pain. Discharged home in stable condition with return instructions. Returned to ED today for persistent nausea, vomiting, diarrhea despite compazine. Denies any blood in stool or emesis. Denies fever, chills, night sweats, SOB, CP. Generalized weakness, fatigue. ED treatment with 1L NS, Zofran, Compazine, Benadryl, Dilaudid with sujective improvement [facility] Medical History (Updated 10/20/23 @ 20:08 by Sandy Rushing MD) Hyperlipidemia Hypertension Surgical History (Updated 10/20/23 @ 21:12 by Kary Posey DO) History of cholecystectomy Social History household members: spouse Smoking Status: Never smoker alcohol intake: current Meds Home Medications and Allergies Home Medications Medication Instructions Recorded Confirmed Type amoxicillin 875 mg-potassium 1 tab PO BID #20 tabs 10/16/23 10/20/23 Rx clavulanate 125 mg tablet prochlorperazine maleate 5 mg 5 mg PO TID PRN nausea and 10/16/23 10/20/23 Rx tablet (Compazine) vomiting #14 tabs atenolol 50 mg tablet 50 mg PO BID 10/20/23 10/20/23 History fluticasone propionate 50 1 spray intranasal DAILY 10/20/23 10/20/23 History mcg/actuation nasal spray,suspension lovastatin 40 mg tablet 40 mg PO DAILY 10/20/23 10/20/23 History omeprazole 20 mg capsule,delayed 20 mg PO QPM 10/20/23 10/20/23 History release telmisartan 80 mg tablet 80 mg PO DAILY blood pressure 10/20/23 10/20/23 History trazodone 100 mg tablet 100 mg PO ONCE PM 10/20/23 10/20/23 History Allergies Allergy/AdvReac Type Severity Reaction Status Date / Time metoclopramide [From Reglan] AdvReac Vomiting Verified 10/18/23 15:41 Review of Systems Review of Systems ROS: Yes All systems reviewed with the patient and are negative except as otherwise documented Exam Vital Signs (past 8 hours): - 10/20/23 14:32 10/20/23 16:51 10/20/23 16:52 Temperature 97.1 F L Pulse Rate 82 86 Respiratory Rate 18 Blood Pressure 150/65 H Pulse Oximetry 97 98 96 Oxygen Delivery Method Room Air 10/20/23 16:52 10/20/23 17:00 10/20/23 17:10 Temperature Pulse Rate 82 Respiratory Rate Blood Pressure 154/71 H 131/60 Pulse Oximetry 97 Oxygen Delivery Method 10/20/23 17:10 10/20/23 17:30 10/20/23 17:31 Temperature Pulse Rate 80 86 82 Respiratory Rate Blood Pressure Pulse Oximetry 97 98 Oxygen Delivery Method 10/20/23 17:31 10/20/23 18:00 10/20/23 18:00 Temperature Pulse Rate 84 Respiratory Rate 25 H Blood Pressure 132/59 L 141/65 H Pulse Oximetry 91 Oxygen Delivery Method 10/20/23 18:32 10/20/23 19:00 10/20/23 19:20 Temperature Pulse Rate 89 88 Respiratory Rate Blood Pressure 135/61 Pulse Oximetry 93 Oxygen Delivery Method 10/20/23 19:20 10/20/23 19:30 10/20/23 19:30 Temperature Pulse Rate 91 H 92 H Respiratory Rate 23 19 Blood Pressure 127/60 Pulse Oximetry 95 94 Oxygen Delivery Method Room Air Room Air 10/20/23 19:51 10/20/23 19:51 10/20/23 20:12 Temperature Pulse Rate 93 H 93 H Respiratory Rate 20 Blood Pressure 169/58 H 169/58 H Pulse Oximetry 93 Oxygen Delivery Method Room Air Oxygen Delivery Method Room Air Narrative Exam Narrative: GEN: NAD HEENT: moist mucous membranes, PERRLA NECK: trachea midline, no JVD CV: regular rate and rhythm, no murmurs PULM: clear bilaterally without crackles, wheeze ABD: soft per nursing palpation, nontender, nondistended EXT: warm and well perfused with no edema NEURO: awake, alert, oriented, no focal deficits Objective Imaging CT scan - abdomen: My impression: Images reviewed, agree with radiologist Radiologist's impression: IMPRESSION: Persistent and fairly similar findings of acute distal descending and sigmoid diverticulitis. No evidence of complication. Fluid in the endometrial canal, not typical for patient's age. Consider pelvic ultrasound once patient's acute illness has resolved. Mild hepatic steatosis. Moderate-sized hiatal hernia. Dictated by: Deisy Han M.D. on 10/20/2023 at 19:16 Approved by: Deisy Han M.D. on 10/20/2023 at 19:22 Labs 10/20/23 14:46 10/20/23 14:46 Labs: Laboratory Results - last 24 hr 10/20/23 10/20/23 10/20/23 14:46 19:05 19:22 WBC 17.9 H RBC 4.35 Hgb 13.0 Hct 38.2 MCV 88.0 MCH 30.0 MCHC 34.1 RDW 12.6 Plt Count 403 H Neut % (Auto) 85.2 H Lymph % (Auto) 9.3 L [place] % (Auto) 4.6 Eos % (Auto) 0.6 L Baso % (Auto) 0.3 Neut # (Auto) 74305 H Lymph # (Auto) 1700 [place] # (Auto) 800 Eos # (Auto) 100 Baso # (Auto) 100 Sodium 131 L Potassium 4.2 Chloride 98 Carbon Dioxide 24 BUN 14 Creatinine 0.74 Estimated GFR > 60 BUN/Creatinine Ratio 18.9 Glucose 132 H Lactate 1.4 Calcium 9.5 Magnesium 1.8 Urine RBC 0-1/hpf Urine WBC 0-1/hpf Ur Squamous Epith Cells 0-1 /hpf Ur Transition Epith Cell None seen Ur Renal Epithelial Cell 5-10/hpf H Urine Bacteria None seen Ur Culture Indicated? Cult not indicated Vol Urine Centrifuged 10ml (spun) Assessment & Plan Assessment and plan (1) Diverticulitis: Status: Acute (2) Intractable vomiting: Status: Acute (3) Acute UTI: Status: Acute Plan Failed outpatient antibx WBC trending up from 14.3 6/1 to 17.9 complicated by margination; temp 97.1, LA 1.4 CT with unchanged distal descending and sigmoid diverticulitis Escalated from amoxcillin to Zosyn in ED, continue Status plst 1L NS, continue IV fluids NPO with ice chips, titrate as tolerates with antiemetics Blood cultures pending UCx 10/15 Ecoli mazariegos sensitive, antibx coverage as above will adequately cover CT with endometrial changes, follow up ith PCP. Fluid in the endometrial canal, not typical for patient's age. Consider pelvic ultrasound once patient's acute illness has resolved. Hyponatremia, mild, s/p IV fluids, monitor Hyperglycemia, suspect reactive, judicous monitoring Assessment & Plan narrative: Chronic conditions HTN, hypertensive on admit, trending down thus will hold home antihypertensives Atenolol, Telmisartan and monitor for timing of reinitiation HLD, continue home Lovastatin formulary equivalent Insomnia, continue home Trazadone GERD, continue home PPI Chronic allergies, continue home Flonase, initiate guaifenesin prn
[2023-10-20 21:51] LABS: Magnesium 1.8 mg/dL (1.6-2.3)
[2023-10-20] MEDS: SODIUM CHLORIDE 0.9% 1,000 ML 100 ML IV (23:14)
[2023-10-21] MEDS: PIPERACILLIN/TAZO 3.375 GM in SODIUM CHLORIDE 0.9% 100 ML IV ×3 (01:33→18:32)
[2023-10-21] MEDS: guaiFENesin Solution 100 MG/5 ML UDC PO (01:42)
[2023-10-21] MEDS: ONDANSETRON 4 MG/2 ML INJ IV ×2 (02:00→16:11)
[2023-10-21 04:09] VITALS: BP 141/70; PULSE 90
[2023-10-21] MEDS: PROCHLORPERAZINE 10 MG/2 ML VIAL IV (04:09)
[2023-10-21] MEDS: diphenhydrAMINE 50 MG/ML VIAL 25 MG IV (04:09)
[2023-10-21 04:15] VITALS: BP 141/70; PULSE 84; RESP 16; TEMP 36.9; O2SAT 94
[2023-10-21] MEDS: SODIUM CHLORIDE 0.9% 1,000 ML 150 ML IV (04:22)
[2023-10-21 06:14] LABS: Add Manual Diff / Slide Review NO; Basophils Absolute Auto 100 /uL (0-100); Basophils Percent Auto 0.4 % (0-2); Eosinophils Absolute Auto 0 /uL (0-450); Eosinophils Percent Auto 0.1 % (2-4); Hematocrit 32.5 % (36-46); Hemoglobin 11.2 g/dL (12.0-16.0); Lymphocytes Absolute Auto 1400 /uL (1100-4500); Lymphocytes Percent Auto 9.7 % (25-40); Mean Corpuscular HGB Conc 34.4 % (30-36); Mean Corpuscular Hemoglobin 30.1 PG (26-34); Mean Corpuscular Volume 87.7 fL (80-100); Monocytes Absolute Auto 900 /uL (0-900); Neutrophils Absolute Auto 11900 /uL (1500-7000); Neutrophils Percent Auto 83.8 % (50-75); Platelet Count 335 X10^3/uL (150-400); Red Cell Distribution Width 12.6 % (11.6-14.8); White Blood Cell Count 14.2 X10^3/uL (4.5-11.0)
[2023-10-21 06:25] LABS: BUN Creatinine Ratio 17.4 (6-22); Blood Urea Nitrogen 12 mg/dL (7-17); Calcium 8.2 mg/dL (8.4-10.2); Carbon Dioxide 23 mmol/L (22-32); Chloride 102 mmol/L (98-107); Estimated Glomerular Filt Rate > 60 mL/min (>60); Glucose 135 mg/dL (80-110); HEMOLYSIS < 15 (0-50); Potassium 3.4 mmol/L (3.4-5.1); Sodium 131 mmol/L (137-145)
--- NOTE | 2023-10-21 07:26 | PM.PN.1 ---
Subjective Subjective Interval history: Patient denies abd pain. Diarrhea and NV has slowed. Exam Vital Signs (past 8 hours): - 10/21/23 04:09 10/21/23 04:15 Temperature 98.4 F Pulse Rate 90 84 Respiratory Rate 16 Blood Pressure 141/70 H 141/70 H Pulse Oximetry 94 Oxygen Flow Rate 2 Oxygen Delivery Method Nasal Cannula Oxygen Flow Rate 2 Narrative Exam Narrative: GEN: NAD HEENT: moist mucous membranes, PERRLA NECK: trachea midline, no JVD CV: regular rate and rhythm, no murmurs PULM: clear bilaterally without crackles, wheeze ABD: soft per nursing palpation, nontender, nondistended EXT: warm and well perfused with no edema NEURO: awake, alert, oriented, no focal deficits Objective Labs 10/21/23 05:47 10/21/23 05:47 Labs: Laboratory Results - last 24 hr 10/20/23 10/20/23 10/20/23 14:46 14:46 19:05 WBC 17.9 H RBC 4.35 Hgb 13.0 Hct 38.2 MCV 88.0 MCH 30.0 MCHC 34.1 RDW 12.6 Plt Count 403 H Neut % (Auto) 85.2 H Lymph % (Auto) 9.3 L [place] % (Auto) 4.6 Eos % (Auto) 0.6 L Baso % (Auto) 0.3 Neut # (Auto) 62686 H Lymph # (Auto) 1700 [place] # (Auto) 800 Eos # (Auto) 100 Baso # (Auto) 100 Sodium 131 L Potassium 4.2 Chloride 98 Carbon Dioxide 24 BUN 14 Creatinine 0.74 Estimated GFR > 60 BUN/Creatinine Ratio 18.9 Glucose 132 H Lactate 1.4 Calcium 9.5 Magnesium 1.8 1.8 Urine RBC Urine WBC Ur Squamous Epith Cells Ur Transition Epith Cell Ur Renal Epithelial Cell Urine Bacteria Ur Culture Indicated? Vol Urine Centrifuged 10/20/23 10/21/23 19:22 05:47 WBC 14.2 H RBC 3.70 L Hgb 11.2 L Hct 32.5 L MCV 87.7 MCH 30.1 MCHC 34.4 RDW 12.6 Plt Count 335 Neut % (Auto) 83.8 H Lymph % (Auto) 9.7 L [place] % (Auto) 6.0 Eos % (Auto) 0.1 L Baso % (Auto) 0.4 Neut # (Auto) 73403 H Lymph # (Auto) 1400 [place] # (Auto) 900 Eos # (Auto) 0 Baso # (Auto) 100 Sodium 131 L Potassium 3.4 Chloride 102 Carbon Dioxide 23 BUN 12 Creatinine 0.69 Estimated GFR > 60 BUN/Creatinine Ratio 17.4 Glucose 135 H Lactate Calcium 8.2 L Magnesium Urine RBC 0-1/hpf Urine WBC 0-1/hpf Ur Squamous Epith Cells 0-1 /hpf Ur Transition Epith Cell None seen Ur Renal Epithelial Cell 5-10/hpf H Urine Bacteria None seen Ur Culture Indicated? Cult not indicated Vol Urine Centrifuged 10ml (spun) [facility] Medical History (Updated 10/20/23 @ 20:08 by Sandy Rushing MD) Hyperlipidemia Hypertension Surgical History (Updated 10/20/23 @ 21:12 by Kary Posey DO) History of cholecystectomy Social History household members: spouse Smoking Status: Never smoker alcohol intake: current Assessment & Plan Assessment & Plan narrative: # Diverticulitis vs gastroenteritis # Intractable vomiting # Acute UTI # Hyponatremia, mild, s/p IV fluids, monitor # Hyperglycemia, suspect reactive, judicous monitoring -Failed outpatient antibx -WBC downtrending -CT with unchanged distal descending and sigmoid diverticulitis, question if actually gastroenteritis given patient has no abd pain and only NVD -Escalated from amoxcillin to Zosyn in ED, continue -continue IV fluids -NPO with ice chips, titrate up as tolerates with antiemetics -Blood cultures pending -UCx 10/15 Ecoli mazariegos sensitive, antibx coverage as above will adequately cover -CT with endometrial changes, follow up ith PCP. Fluid in the endometrial canal, not typical for patient's age. Consider pelvic ultrasound once patient's acute illness has resolved. Chronic conditions HTN, hypertensive on admit, trending down thus will hold home antihypertensives Atenolol, Telmisartan and monitor for timing of reinitiation HLD, continue home Lovastatin formulary equivalent Insomnia, continue home Trazadone GERD, continue home PPI Chronic allergies, continue home Flonase, initiate guaifenesin prn Dispo: Home on 10/21 if tolerating po. Quality VTE Deep Vein Thrombosis/Pulmonary Embolism Present on Admission: No
[2023-10-21 08:00] VITALS: BP 140/60; PULSE 87; RESP 16; TEMP 36.3; O2SAT 93
[2023-10-21] MEDS: FLUTICASONE 120 SPRAY/16 GM SPRAY.SUSP NASAL (09:08)
[2023-10-21] MEDS: ENOXAPARIN 40 MG/0.4 ML SYRINGE SUBCUT (09:09)
[2023-10-21] MEDS: SODIUM CHLORIDE 0.9% FLUSH 10 ML IV ×2 (09:09→20:36)
[2023-10-21 12:05] LABS: Adenovirus F 40/41 Not Detected (Not Detect); Astrovirus Not Detected (Not Detect); Campylobacter Not Detected (Not Detect); Clostridium difficile toxin AB Not Detected (Not Detect); Cryptosporidium Not Detected (Not Detect); Cyclospora cayetanensis Not Detected (Not Detect); Entamoeba histolytica Not Detected (Not Detect); Enteroaggregative E.coli Not Detected (Not Detect); Enteropathogenic E.coli Not Detected (Not Detect); Enterotoxigenic E.coli It/st Not Detected (Not Detect); Giardia lamblia Not Detected (Not Detect); Norovirus GI/GII Not Detected (Not Detect); Plesiomonsa shigelloides Not Detected (Not Detect); Rotavirus A Not Detected (Not Detect); Salmonella Not Detected (Not Detect); Sapovirus Not Detected (Not Detect); Shiga-like toxin-prod E.coli Not Detected (Not Detect); Shigella/Enteroinvasive E.coli Not Detected (Not Detect); Vibrio Not Detected (Not Detect); Vibrio cholerae Not Detected (Not Detect); Yersinia enterocolitica Not Detected (Not Detect)
[2023-10-21] MEDS: POTASSIUM CHLORIDE IN WATER 10 MEQ/100 ML PIGGYBACK 100 MEQ IV ×2 (12:55→13:57)
--- NOTE | 2023-10-21 14:40 | CM.DANOTE ---
Initial DCP Assessment Visit Note Reviewed EMR and team rounds for pt's medical status and updates. Went to meet with pt f/f, however she was sleeping most of the day. Per EMR, pt resides independently at baseline with her spouse in their own home in [place]. Her spouse will plan to transport her home once she's medically cleared for home d/c. Payor: Medicare PCP: Matteo Begum Pt is a 82 year-old F who presented to the ED yesterday evening with c/o continuing intractable nausea/vomiting/diarrhea. She had initially been seen in the ED for the same issues, was diagnosed with diverticulitis at that time and started on antibiotics. She came back to the ED on October 17 with worsening diarrhea, but no new interventions were done at that time, and she was encouraged to continue taking the antibiotic. Last evening, she shared that she has intractable nausea that is not responding to Compazine, and again, worsening diarrhea, and states that she is also having increasing weakness as a result. CT imaging in the ED again showed acute diverticulitis. She was started on IV ABO's, antiemetics, and pain meds, then admitted to the floor for further tx/monitoring. DCP will continue to follow and assist with any evolving needs prior to her d/c back home. PT/OT evals/recommendations are pending. Discharge Planning/Care Management CM Discharge Assessment Start: 10/21/23 14:37 Freq: Status: Active Protocol: Document 10/21/23 14:37 DPL (Rec: 10/21/23 14:40 DPL [id number]) Discharge Planning Assessment Assigned Department Sales Manager BEATRIZ Driver Advance Directives? No History Provided By Medical Record Expected Length of Stay 1 Has Patient been admitted in last 30 No days? Comment She did have 2-ED presentations: 10/15, 10/17 for same issues. Prior Living Arrangements House Household Members spouse Type of transporation used prior to Drives own vehicle admit Independent with ADL's Yes Is patient alert and oriented? Yes Caregiver for Another No Comment Pending PT/OT eval/ recommendations. Barriers to Discharge No Transportation Arrangement Spouse Referrals Initiated None needed Whiteboard Updated in Patient Room with No name and ext. # of Department Sales Manager Review Status In Process Please Provide Date Initial DC 10/21/23 Assessment Was Performed
[2023-10-21 17:00] VITALS: BP 164/74; PULSE 84; RESP 16; TEMP 36.6; O2SAT 98
[2023-10-21] MEDS: ATORVASTATIN 20 MG TABLET 10 MG PO (20:35)
[2023-10-21] MEDS: TRAZODONE 50 MG TABLET 100 MG PO (20:35)
[2023-10-21 20:57] VITALS: BP 145/65; PULSE 89; RESP 20; TEMP 37.5; O2SAT 91
[2023-10-22] MEDS: SODIUM CHLORIDE 0.9% 1,000 ML 100 ML IV (01:32)
[2023-10-22] MEDS: PIPERACILLIN/TAZO 3.375 GM in SODIUM CHLORIDE 0.9% 100 ML IV ×3 (01:33→17:26)
[2023-10-22 03:20] VITALS: BP 157/68; PULSE 91; RESP 18; TEMP 36.5; O2SAT 92
[2023-10-22] MEDS: ONDANSETRON 4 MG/2 ML INJ IV ×3 (05:43→21:00)
[2023-10-22 07:19] LABS: BUN Creatinine Ratio 16.4 (6-22); Blood Urea Nitrogen 10 mg/dL (7-17); Calcium 8.2 mg/dL (8.4-10.2); Carbon Dioxide 26 mmol/L (22-32); Chloride 94 mmol/L (98-107); Estimated Glomerular Filt Rate > 60 mL/min (>60); Glucose 132 mg/dL (80-110); HEMOLYSIS < 15 (0-50); Sodium 129 mmol/L (137-145)
[2023-10-22 08:00] VITALS: BP 165/75; PULSE 85; RESP 18; TEMP 36.4; O2SAT 93
[2023-10-22 08:30] VITALS: O2SAT 93
[2023-10-22] MEDS: ENOXAPARIN 40 MG/0.4 ML SYRINGE SUBCUT (08:47)
[2023-10-22] MEDS: FLUTICASONE 120 SPRAY/16 GM SPRAY.SUSP NASAL (08:50)
[2023-10-22] MEDS: SODIUM CHLORIDE 0.9% FLUSH 10 ML IV ×2 (08:51→21:00)
--- NOTE | 2023-10-22 13:15 | PM.PN.1 ---
Subjective Subjective Interval history: Feels like food / liquid is getting stuck today. Had a hiatal hernia repair many years ago that failed and went to [facility] after. No notes are able to be located in [facility] record that is available to me. Had one loose stool today, denies abdominal pain. Exam Vital Signs (past 8 hours): - 10/22/23 07:00 10/22/23 08:00 10/22/23 08:30 Temperature 97.5 F L Pulse Rate 85 Respiratory Rate 18 Blood Pressure 165/75 H Pulse Oximetry 93 93 Oxygen Delivery Method Nasal Cannula Nasal Cannula Oxygen Flow Rate 2 2 Oxygen Delivery Method Nasal Cannula Oxygen Flow Rate 2 Narrative Exam Narrative: GEN: NAD HEENT: moist mucous membranes, PERRLA NECK: trachea midline, no JVD CV: regular rate and rhythm, no murmurs PULM: clear bilaterally without crackles, wheeze ABD: soft per nursing palpation, nontender, nondistended EXT: warm and well perfused with no edema NEURO: awake, alert, oriented, no focal deficits Objective Labs 10/21/23 05:47 10/22/23 06:10 Labs: Laboratory Results - last 24 hr 10/22/23 06:10 Sodium 129 L Potassium 3.0 L Chloride 94 L Carbon Dioxide 26 BUN 10 Creatinine 0.61 Estimated GFR > 60 BUN/Creatinine Ratio 16.4 Glucose 132 H Calcium 8.2 L PFSH Medical History (Updated 10/20/23 @ 20:08 by Sandy Rushing MD) Hyperlipidemia Hypertension Surgical History (Updated 10/20/23 @ 21:12 by Kary Posey DO) History of cholecystectomy Social History household members: spouse Smoking Status: Never smoker alcohol intake: current Assessment & Plan Assessment & Plan narrative: # Diverticulitis vs gastroenteritis # Intractable vomiting # Acute UTI # Hyponatremia, mild, s/p IV fluids, monitor # Hyperglycemia, suspect reactive, judicous monitoring #dysphagia, history of hiatal hernia repair -Failed outpatient antibx -WBC downtrending -CT with unchanged distal descending and sigmoid diverticulitis, question if actually gastroenteritis given patient has no abd pain and only NVD. With reported dysphagia today wonder if there has been some esophageal narrowing. Discussed with surgery whom recommended barium swallow to further assess. -Escalated from amoxcillin to Zosyn in ED, continue today -continue IV fluids -advance diet as tolerated, pending above barium swallow. -Blood cultures pending -UCx 10/15 Ecoli mazariegos sensitive, antibx coverage as above will adequately cover -CT with endometrial changes, follow up ith PCP. Fluid in the endometrial canal, not typical for patient's age. Consider pelvic ultrasound once patient's acute illness has resolved. Chronic conditions HTN, hypertensive on admit, trending down thus will hold home antihypertensives Atenolol, Telmisartan and monitor for timing of reinitiation HLD, continue home Lovastatin formulary equivalent Insomnia, continue home Trazadone GERD, continue home PPI Chronic allergies, continue home Flonase, initiate guaifenesin prn Dispo: home, dispo unclear depends on barium swallow results and if need for acute management. Quality VTE Deep Vein Thrombosis/Pulmonary Embolism Present on Admission: No
--- NOTE | 2023-10-22 13:52 | CM.DPC ---
DCP Continued: Reviewed EMR and team rounds for pt?s medical status. Per hospitalist, pt can dc when tolerating PO, is on clear liquid diet. Per RN, pt is not tolerating PO at this time and can't even take medications, feels like food is stuck. Another night for monitoring is anticipated, per RN. Plan: Anticipating home with spouse when medically cleared and tolerating PO. CM Team will continue to follow for coordination of discharge plans. BENTON Solomon
[2023-10-22] MEDS: POTASSIUM CHLORIDE IN WATER 10 MEQ/100 ML PIGGYBACK 100 MEQ IV ×4 (13:59→18:50)
--- NOTE | 2023-10-22 14:05 | DI.RAD.S_ITS ---
PROCEDURE: FL BARIUM SWALLOW INDICATIONS: hx of hiatal hernia repair, reports liquids stuck COMPARISON: [facility], CT, CT ABDOMEN PELVIS W CON, 10/20/2023, 18:17. FINDINGS: Function: There is weakened esophageal peristalsis, resulting in tertiary contractions and stasis of contrast. Morphology: Moderate hiatal hernia. The Conner fundoplication is not identified. IMPRESSION: Conner fundoplication not identified. Moderate hiatal hernia. Severe esophageal dysmotility. Dictated by: Nile Liz M.D. on 10/22/2023 at 17:02 Approved by: Nile Liz M.D. on 10/22/2023 at 17:04
[2023-10-22 14:30] VITALS: BP 159/84; PULSE 88; RESP 14; TEMP 35.9; O2SAT 97
[2023-10-22 18:04] VITALS: BP 169/71; PULSE 97; RESP 18; TEMP 36.3; O2SAT 95
--- NOTE | 2023-10-22 19:01 | PC.NURSE ---
New order for PICC line this evening. RN confirmed with MD Ignacio, may be inserted on 10/22 as long as before 1800 when TPN is due.
[2023-10-23] MEDS: PROCHLORPERAZINE 10 MG/2 ML VIAL IV (01:30)
[2023-10-23] MEDS: PIPERACILLIN/TAZO 3.375 GM in SODIUM CHLORIDE 0.9% 100 ML IV ×3 (02:00→19:00)
[2023-10-23] MEDS: SODIUM CHLORIDE 0.9% FLUSH 10 ML IV ×2 (08:20→08:25)
[2023-10-23] MEDS: ENOXAPARIN 40 MG/0.4 ML SYRINGE SUBCUT (08:25)
[2023-10-23] MEDS: FLUTICASONE 120 SPRAY/16 GM SPRAY.SUSP NASAL (08:25)
[2023-10-23 16:00] VITALS: BP 132/72; PULSE 96; RESP 18; TEMP 36.1; O2SAT 94
--- NOTE | 2023-10-23 17:24 | PC.NURSE ---
Computer downtime from 10/21 1900 till 10/22 1600. see paper/scanned documentation
--- NOTE | 2023-10-23 17:32 | PC.NURSE ---
EMR downtime from 10/22/23 @ 1999 to 10/23/23 @ approximately 1600. Refer to paper documentation.
[2023-10-23 18:14] LABS: Add Manual Diff / Slide Review NO; Basophils Absolute Auto 0 /uL (0-100); Basophils Percent Auto 0.3 % (0-2); Eosinophils Absolute Auto 0 /uL (0-450); Eosinophils Percent Auto 0.1 % (2-4); Hematocrit 35.9 % (36-46); Hemoglobin 12.5 g/dL (12.0-16.0); Lymphocytes Absolute Auto 1300 /uL (1100-4500); Lymphocytes Percent Auto 9.4 % (25-40); Mean Corpuscular HGB Conc 34.8 % (30-36); Mean Corpuscular Hemoglobin 30.1 PG (26-34); Mean Corpuscular Volume 86.5 fL (80-100); Monocytes Absolute Auto 1300 /uL (0-900); Monocytes Percent Auto 9.1 % (3-14); Neutrophils Absolute Auto 11500 /uL (1500-7000); Neutrophils Percent Auto 81.1 % (50-75); Platelet Count 412 X10^3/uL (150-400); Red Blood Cell Count 4.15 X10^6/uL (4.0-5.2); Red Cell Distribution Width 12.4 % (11.6-14.8); White Blood Cell Count 14.1 X10^3/uL (4.5-11.0)
[2023-10-23 18:15] LABS: Alanine Aminotransferase 18 IU/L (<35); Albumin 3.9 g/dL (3.5-5.0); Albumin Globulin Ratio 1.2 (1.0-2.8); Alkaline Phosphatase 88 U/L (38-126); Aspartate Aminotransferase 32 IU/L (14-36); BUN Creatinine Ratio 19.4 (6-22); Bilirubin Total 1.3 mg/dL (0.2-1.3); Blood Urea Nitrogen 13 mg/dL (7-17); Calcium 8.5 mg/dL (8.4-10.2); Carbon Dioxide 29 mmol/L (22-32); Chloride 90 mmol/L (98-107); Estimated Glomerular Filt Rate > 60 mL/min (>60); Globulin 3.2 g/dL (1.7-4.1); Glucose 116 mg/dL (80-110); HEMOLYSIS < 15 (0-50); Magnesium 1.9 mg/dL (1.6-2.3); Phosphorous 2.4 mg/dL (2.8-4.1); Sodium 125 mmol/L (137-145); Total Protein 7.1 g/dL (6.3-8.2)
[2023-10-23 20:27] VITALS: BP 108/60; PULSE 96; RESP 18; TEMP 36.1; O2SAT 93
[2023-10-23] MEDS: ATORVASTATIN 20 MG TABLET 10 MG PO (20:38)
[2023-10-23] MEDS: TRAZODONE 50 MG TABLET 100 MG PO (20:39)
[2023-10-23] MEDS: SODIUM CHLORIDE 0.9% 1,000 ML 75 ML IV (23:14)
[2023-10-24] VITALS (12 sets, daily range): BP systolic 115–144; BP diastolic 42–73; PULSE 93–111; RESP 15–28; TEMP 35.8–36.9; O2SAT 92–98
--- NOTE | 2023-10-24 | PATH_ITS ---
[facility] Accession Number: [id number] No. of containers..01 Tissue . 01 Material submitted: . duodenum - DUODENUM . 01 Diagnosis: DUODENUM: Duodenal mucosa with mild active inflammation. No evidence of celiac disease. No infectious organisms identified. See comment. . Specimen Comments: The features raise a differential including peptic duodenitis or NSAID-induced injury among other possibilities. STO 11/01/2023 1226 Local . 01 Electronically signed: . Faustino Schneider MD, Pathologist NPI- [id number] . 01 Gross description: . Received in formalin with two patient identifiers and duodenum, is a single higginbotham soft tissue fragment, 0.4 cm in greatest dimension. Submitted entirely in A1. ([id number]) /MRV 11/01/2023 1226 Local . 01 Pathologist provided ICD-10: K29.80 . 01 CPT . 326944 Specimen Comment: A courtesy copy of this report has been sent to [phone] Performed at: [address] [id number] MD Faustino Schneider MD Phone: [phone]
[2023-10-24] MEDS: PIPERACILLIN/TAZO 3.375 GM in SODIUM CHLORIDE 0.9% 100 ML IV ×3 (01:05→18:37)
[2023-10-24 02:51] LABS: Add Manual Diff / Slide Review NO; Basophils Absolute Auto 100 /uL (0-100); Basophils Percent Auto 0.4 % (0-2); Eosinophils Absolute Auto 100 /uL (0-450); Eosinophils Percent Auto 0.7 % (2-4); Hematocrit 35.6 % (36-46); Hemoglobin 12.3 g/dL (12.0-16.0); Lymphocytes Absolute Auto 1400 /uL (1100-4500); Lymphocytes Percent Auto 11.5 % (25-40); Mean Corpuscular HGB Conc 34.5 % (30-36); Mean Corpuscular Hemoglobin 29.9 PG (26-34); Mean Corpuscular Volume 86.8 fL (80-100); Monocytes Absolute Auto 1100 /uL (0-900); Monocytes Percent Auto 8.7 % (3-14); Neutrophils Absolute Auto 9700 /uL (1500-7000); Neutrophils Percent Auto 78.7 % (50-75); Platelet Count 372 X10^3/uL (150-400); Red Blood Cell Count 4.11 X10^6/uL (4.0-5.2); Red Cell Distribution Width 12.7 % (11.6-14.8); White Blood Cell Count 12.4 X10^3/uL (4.5-11.0)
[2023-10-24 02:55] LABS: Alanine Aminotransferase 18 IU/L (<35); Albumin 3.3 g/dL (3.5-5.0); Albumin Globulin Ratio 1.1 (1.0-2.8); Alkaline Phosphatase 73 U/L (38-126); Aspartate Aminotransferase 24 IU/L (14-36); BUN Creatinine Ratio 24.1 (6-22); Bilirubin Total 1.2 mg/dL (0.2-1.3); Blood Urea Nitrogen 21 mg/dL (7-17); Calcium 8.2 mg/dL (8.4-10.2); Carbon Dioxide 27 mmol/L (22-32); Chloride 97 mmol/L (98-107); Estimated Glomerular Filt Rate > 60 mL/min (>60); Globulin 2.9 g/dL (1.7-4.1); Glucose 84 mg/dL (80-110); HEMOLYSIS < 15 (0-50); Phosphorous 2.5 mg/dL (2.8-4.1); Potassium 2.9 mmol/L (3.4-5.1); Sodium 129 mmol/L (137-145); Total Protein 6.2 g/dL (6.3-8.2)
[2023-10-24] MEDS: POTASSIUM CHLORIDE IN WATER 10 MEQ/100 ML PIGGYBACK 100 MEQ IV ×4 (03:22→06:36)
[2023-10-24] MEDS: LACTATED RINGERS 1,000 ML 42 ML IV (09:01)
--- NOTE | 2023-10-24 09:03 | P.CONS_ITS ---
History of Present Illness Consult details Date Patient Seen: 10/24/23 Time Patient Seen: 09:03 Chief complaint: vomiting, diarrhea Narrative: Sofia is an 82-year-old woman who presented to our ER on 10/19 with diarrhea and vomiting. A CT scan demonstrated acute sigmoid diverticulitis and she was started on antibiotics. It was noted that she was unable to swallow once she was started on a diet. She has a history of a Conner fundoplication in 2003 which was initially too tight but no intervention was required and she has not had dysphagia up until current time. She has a known paraesophageal hernia. She did have a barium swallow study on this hospitalization which showed no ninoska stricture but weak peristalsis and tertiary contractions. Meds Home Medications and Allergies Home Medications Medication Instructions Recorded Confirmed Type amoxicillin 875 mg-potassium 1 tab PO BID #20 tabs 10/16/23 10/20/23 Rx clavulanate 125 mg tablet atenolol 50 mg tablet 50 mg PO BID 10/20/23 10/20/23 History fluticasone propionate 50 1 spray intranasal BID 10/20/23 10/21/23 History mcg/actuation nasal spray,suspension lovastatin 40 mg tablet 40 mg PO DAILY 10/20/23 10/20/23 History omeprazole 20 mg capsule,delayed 40 mg PO DAILY 10/20/23 10/21/23 History release telmisartan 80 mg tablet 80 mg PO DAILY blood pressure 10/20/23 10/20/23 History Centrum Silver 1 tab PO DAILY 10/21/23 10/21/23 History Pataday 1 drp EYE-BOTH BID 10/21/23 10/21/23 History Pulmicort 180 mcg inhalation BID 10/21/23 10/21/23 History amlodipine 2.5 mg PO DAILY 10/21/23 10/21/23 History aspirin 81 mg PO DAILY 10/21/23 10/21/23 History losartan 100 mg PO DAILY 10/21/23 10/21/23 History trazodone 100 mg PO BEDTIME 10/21/23 10/21/23 History triamterene 37.5 1 tab PO DAILY 10/21/23 10/21/23 History mg-hydrochlorothiazide 25 mg tablet Allergies Allergy/AdvReac Type Severity Reaction Status Date / Time metoclopramide [From Reglan] AdvReac Vomiting Verified 10/18/23 15:41 Exam Vital Signs (past 8 hours): - 10/24/23 01:50 10/24/23 05:40 10/24/23 08:00 Temperature 96.5 F L 96.9 F L 97.7 F Pulse Rate 101 H 97 H 95 H Respiratory Rate 18 15 17 Blood Pressure 129/58 L 135/63 118/42 L Pulse Oximetry 92 95 96 Oxygen Delivery Method 10/24/23 08:58 Temperature 97.7 F Pulse Rate 95 H Respiratory Rate 16 Blood Pressure 141/73 H Pulse Oximetry 94 Oxygen Delivery Method Room Air Oxygen Delivery Method Room Air Oxygen Flow Rate 1 Const General: No acute distress Resp Effort & Inspection: normal respiratory effort Objective Labs 10/24/23 02:30 10/24/23 02:30 Labs: Laboratory Results - last 24 hr 10/23/23 10/24/23 06:20 02:30 WBC 14.1 H 12.4 H RBC 4.15 4.11 Hgb 12.5 12.3 Hct 35.9 L 35.6 L MCV 86.5 86.8 MCH 30.1 29.9 MCHC 34.8 34.5 RDW 12.4 12.7 Plt Count 412 H 372 Neut % (Auto) 81.1 H 78.7 H Lymph % (Auto) 9.4 L 11.5 L [place] % (Auto) 9.1 8.7 Eos % (Auto) 0.1 L 0.7 L Baso % (Auto) 0.3 0.4 Neut # (Auto) 52579 H 9700 H Lymph # (Auto) 1300 1400 [place] # (Auto) 1300 H 1100 H Eos # (Auto) 0 100 Baso # (Auto) 0 100 Sodium 125 L 129 L Potassium 3.0 L 2.9 L Chloride 90 L 97 L Carbon Dioxide 29 27 BUN 13 21 H Creatinine 0.67 0.87 Estimated GFR > 60 > 60 BUN/Creatinine Ratio 19.4 24.1 H Glucose 116 H 84 Calcium 8.5 8.2 L Phosphorus 2.4 L 2.5 L Magnesium 1.9 2.0 Total Bilirubin 1.3 1.2 AST 32 24 ALT 18 18 Alkaline Phosphatase 88 73 Total Protein 7.1 6.2 L Albumin 3.9 3.3 L Globulin 3.2 2.9 Albumin/Globulin Ratio 1.2 1.1 [facility] Medical History (Updated 10/24/23 @ 09:05 by Tristian Lyn MD) Hyperlipidemia Hypertension Surgical History (Updated 10/20/23 @ 21:12 by Kary Posey DO) History of cholecystectomy Social History household members: spouse Tobacco & Substance Use Smoking Status: Never smoker alcohol intake: current Assessment & Plan Assessment and plan (1) Dysphagia: Status: Acute Plan We reviewed the risks and benefits of esophagogastroduodenoscopy to evaluate the mucosal lining and perform biopsies if necessary. She would like to proceed.
--- NOTE | 2023-10-24 09:19 | PM.OP.EGD ---
Operative Date/Time/Diagnoses Date of procedure: 10/24/23 Time of procedure: 09:19 Pre-op diagnosis: Dysphagia Post-op diagnosis: same Procedure & Clinicians Study performed: Esophagogastroduodenoscopy Same procedure as scheduled: Yes Surgeon: Tristian Lyn Procedure Notes Procedure in detail: Surgeon: Tristian Lyn MD Anesthesia: Mireille Rendon DO A timeout was performed. A bite blocked was placed. The patient was positioned in the left lateral decubitus position. Anesthesia was administered. The endoscope was inserted through the bite block and passed through the esophagus and stomach and into the duodenum. The duodenal mucosa was mildly inflamed in the first portion and biopsies were taken with cold forceps. The scope was withdrawn into the duodenal bulb and no ulcers were seen. The scope was withdrawn into the stomach. No mucosal abnormalities were seen. The scope was retroflexed and a moderate sized hiatal hernia was noted measuring approximately 4 cm. The scope was withdrawn into the esophagus and no mucosal abnormalities were noted in the distal esophagus. The remainder of the esophagus was normal. The scope was withdrawn. The patient was awakened and brought to recovery. Sedation time: See anesthesia record Findings: Mild duodenitis, moderate hiatal hernia Post-procedure Disposition: PACU
[2023-10-24] MEDS: FLUTICASONE 120 SPRAY/16 GM SPRAY.SUSP NASAL (10:19)
[2023-10-24] MEDS: SODIUM CHLORIDE 0.9% FLUSH 10 ML IV (10:20)
[2023-10-24] MEDS: ENOXAPARIN 40 MG/0.4 ML SYRINGE SUBCUT (10:20)
--- NOTE | 2023-10-24 13:16 | CM.DPNOTE ---
DCP note [employer] reviewed EMR/paper chart. Per hospitalist in morning rounds, pt remains on IV abx. EGD today. Pt will get NG tube in afternoon. If can tolerate NG tube, will dc home with that and OP f/u. If cannot, will pursue TPN plan. Hospitalist is hopeful for NG tube feeds. Per chart review, surgeon placed speech therapy consult. P: pending results of EGD/if pt can tolerate tube feeds. CM team will continue to follow closely. Anticipating home with spouse when medically cleared and tolerating PO. CM Team will continue to follow for coordination of discharge plans. BEATRIZ Culp
--- NOTE | 2023-10-24 16:01 | PM.PN.1 ---
Subjective Subjective Interval history: 82 F admitted with diverticulitis, she complained for liquids feeling like they are getting stuck on 10/21. 10/21 barium swallow showed severe esophageal dysmotility. Discussed with GI, recommended EGD, NG tube placement for nutrition, and outpatient follow up with GI provider for manometry studies. EGD today with surgery was unremarkable, mild gastritis but no obstruction. Exam Vital Signs (past 8 hours): - 10/24/23 08:58 10/24/23 09:20 10/24/23 09:22 Temperature 97.7 F 98.4 F Pulse Rate 95 H 104 H 99 H Respiratory Rate 16 21 24 Blood Pressure 141/73 H 115/63 129/61 Pulse Oximetry 94 98 98 Oxygen Delivery Method Room Air Nasal Cannula Nasal Cannula Oxygen Flow Rate 3 2 10/24/23 09:30 10/24/23 09:36 10/24/23 12:00 Temperature 97.3 F L Pulse Rate 111 H 100 H 93 H Respiratory Rate 28 H 16 18 Blood Pressure 126/63 134/69 135/63 Pulse Oximetry 95 95 94 Oxygen Delivery Method Room Air Room Air Oxygen Flow Rate 0 Oxygen Delivery Method Room Air Oxygen Flow Rate 0 Narrative Exam Narrative: GEN: NAD HEENT: moist mucous membranes, PERRLA NECK: trachea midline, no JVD CV: regular rate and rhythm, no murmurs PULM: clear bilaterally without crackles, wheeze ABD: soft per nursing palpation, nontender, nondistended EXT: warm and well perfused with no edema NEURO: awake, alert, oriented, no focal deficits Objective Labs 10/24/23 02:30 10/24/23 02:30 Labs: Laboratory Results - last 24 hr 10/23/23 10/24/23 06:20 02:30 WBC 14.1 H 12.4 H RBC 4.15 4.11 Hgb 12.5 12.3 Hct 35.9 L 35.6 L MCV 86.5 86.8 MCH 30.1 29.9 MCHC 34.8 34.5 RDW 12.4 12.7 Plt Count 412 H 372 Neut % (Auto) 81.1 H 78.7 H Lymph % (Auto) 9.4 L 11.5 L [place] % (Auto) 9.1 8.7 Eos % (Auto) 0.1 L 0.7 L Baso % (Auto) 0.3 0.4 Neut # (Auto) 48160 H 9700 H Lymph # (Auto) 1300 1400 [place] # (Auto) 1300 H 1100 H Eos # (Auto) 0 100 Baso # (Auto) 0 100 Sodium 125 L 129 L Potassium 3.0 L 2.9 L Chloride 90 L 97 L Carbon Dioxide 29 27 BUN 13 21 H Creatinine 0.67 0.87 Estimated GFR > 60 > 60 BUN/Creatinine Ratio 19.4 24.1 H Glucose 116 H 84 Calcium 8.5 8.2 L Phosphorus 2.4 L 2.5 L Magnesium 1.9 2.0 Total Bilirubin 1.3 1.2 AST 32 24 ALT 18 18 Alkaline Phosphatase 88 73 Total Protein 7.1 6.2 L Albumin 3.9 3.3 L Globulin 3.2 2.9 Albumin/Globulin Ratio 1.2 1.1 [facility] Medical History (Updated 10/24/23 @ 09:05 by Tristian Lyn MD) Hyperlipidemia Hypertension Surgical History (Updated 10/20/23 @ 21:12 by Kary Posey DO) History of cholecystectomy Social History household members: spouse Smoking Status: Never smoker alcohol intake: current Assessment & Plan Assessment & Plan narrative: # Diverticulitis vs gastroenteritis # Intractable vomiting # Acute UTI # Hyponatremia, mild, s/p IV fluids, monitor # Hyperglycemia, suspect reactive, judicous monitoring #dysphagia, history of hiatal hernia repair -Failed outpatient antibx -WBC downtrending -CT with unchanged distal descending and sigmoid diverticulitis. -Reported dysphagia on 10/21, barium swallow showed severe dysmotility. -Continue zosyn for diverticular disease. -EGD shows no obstruction, mild gastritis. Discussed with GI whom recommend nutrition ideally via NG tube and outpatient manometry as next step in evaluation. -Continue NPO, IV fluids. -Blood cultures without growth. -UCx 10/15 Ecoli mazariegos sensitive, antibx coverage as above will adequately cover -CT with endometrial changes, follow up ith PCP. Fluid in the endometrial canal, not typical for patient's age. Consider pelvic ultrasound once patient's acute illness has resolved. Chronic conditions HTN, hypertensive on admit, trending down thus will hold home antihypertensives Atenolol, Telmisartan and monitor for timing of reinitiation HLD, continue home Lovastatin formulary equivalent Insomnia, continue home Trazadone GERD, continue home PPI Chronic allergies, continue home Flonase, initiate guaifenesin prn Dispo: home, if tolerating NG tube feedings can discharge home in a couple of days. If cannot tolerate NG tube or feeds will need TPN. Likely 1-2 days. Quality VTE Deep Vein Thrombosis/Pulmonary Embolism Present on Admission: No
--- NOTE | 2023-10-24 16:30 | DI.RAD.S_ITS ---
PROCEDURE: XR CHEST 1V INDICATIONS: NG placement TECHNIQUE: One view of the chest was acquired. COMPARISON: [facility], CT, CT ABDOMEN PELVIS W CON, 10/20/2023, 18:17. [facility], CR, XR CHEST 1V, 10/16/2023, 8:37. FINDINGS: Surgical changes and devices: There is a gastric tube seen, with the tip coiled upon itself within the moderate hiatal hernia. Upper abdominal clips are seen. Left breast clips are seen. Lungs and pleura: Low lung volumes are noted. This causes a crowded appearance to the lung markings and limits evaluation. There is blunting of the left costophrenic angle. Mediastinum: Mediastinal contours appear normal. Heart size is normal. Atherosclerotic calcification of the aortic arch is noted. Bones and chest wall: No suspicious bony lesions. Overlying soft tissues appear unremarkable. IMPRESSION: The tip of the gastric tube can be seen coiled within the hiatal hernia, not seen below the level of the diaphragm. Blunting of the left costophrenic angle is seen. When considering prior imaging, this most likely related to scarring. Upper abdominal clips and left breast clips are seen. Dictated by: Anam Gage M.D. on 10/24/2023 at 16:00 Approved by: Anam Gage M.D. on 10/24/2023 at 16:01
--- NOTE | 2023-10-24 19:27 | DI.RAD.S_ITS ---
PROCEDURE: XR CHEST 1V INDICATIONS: Reattempted enteral feeding tube TECHNIQUE: One view of the chest was acquired. COMPARISON: [facility], CR, XR CHEST 1V, 10/24/2023, 16:30., CT abdomen pelvis 10/20/2023 FINDINGS: Surgical changes and devices: There is a weighted tip enteric tube that courses below the diaphragm, however it is looped with the weighted tip projected over the region of the gastroesophageal junction. Recommend repositioning. Surgical clips in the left breast, as before. Lungs and pleura: No pneumothorax. Small left pleural effusion with subjacent atelectasis. Mediastinum: Mediastinal contours appear normal. Heart size is normal. Moderate hiatal hernia better visualized on prior CT 10/20/2023. Bones and chest wall: No suspicious bony lesions. Overlying soft tissues appear unremarkable. IMPRESSION: Small left pleural effusion with subjacent atelectasis. Recommend repositioning of weighted tip enteric tube which is looped likely within the hiatal hernia with tip projecting over the region of the gastroesophageal junction. Findings were discussed with patient's RN by Dr. Prado at 8:25 p.m. on 10/24/2023 Approved by: Kylee Prado M.D.,Ph.D. on 10/24/2023 at 20:28
[2023-10-24] MEDS: SODIUM CHLORIDE 0.9% 1,000 ML 75 ML IV (22:11)
[2023-10-25] MEDS: PIPERACILLIN/TAZO 3.375 GM in SODIUM CHLORIDE 0.9% 100 ML IV ×3 (02:19→18:08)
[2023-10-25 03:00] VITALS: BP 134/59; PULSE 91; RESP 16; TEMP 36.2; O2SAT 92
[2023-10-25 05:47] LABS: Add Manual Diff / Slide Review NO; Basophils Absolute Auto 100 /uL (0-100); Basophils Percent Auto 0.7 % (0-2); Eosinophils Absolute Auto 100 /uL (0-450); Hematocrit 33.8 % (36-46); Hemoglobin 11.8 g/dL (12.0-16.0); Lymphocytes Absolute Auto 1100 /uL (1100-4500); Lymphocytes Percent Auto 10.2 % (25-40); Mean Corpuscular HGB Conc 34.8 % (30-36); Mean Corpuscular Hemoglobin 30.1 PG (26-34); Mean Corpuscular Volume 86.4 fL (80-100); Monocytes Absolute Auto 800 /uL (0-900); Monocytes Percent Auto 7.3 % (3-14); Neutrophils Absolute Auto 8900 /uL (1500-7000); Neutrophils Percent Auto 80.8 % (50-75); Platelet Count 349 X10^3/uL (150-400); Red Blood Cell Count 3.92 X10^6/uL (4.0-5.2); Red Cell Distribution Width 12.7 % (11.6-14.8); White Blood Cell Count 11.1 X10^3/uL (4.5-11.0)
[2023-10-25 06:06] LABS: Alanine Aminotransferase 17 IU/L (<35); Albumin 3.1 g/dL (3.5-5.0); Albumin Globulin Ratio 1.1 (1.0-2.8); Alkaline Phosphatase 71 U/L (38-126); Aspartate Aminotransferase 21 IU/L (14-36); BUN Creatinine Ratio 20.6 (6-22); Bilirubin Total 1.1 mg/dL (0.2-1.3); Blood Urea Nitrogen 14 mg/dL (7-17); Calcium 7.9 mg/dL (8.4-10.2); Carbon Dioxide 25 mmol/L (22-32); Chloride 99 mmol/L (98-107); Estimated Glomerular Filt Rate > 60 mL/min (>60); Globulin 2.9 g/dL (1.7-4.1); Glucose 75 mg/dL (80-110); HEMOLYSIS < 15 (0-50); Magnesium 1.7 mg/dL (1.6-2.3); Phosphorous 2.5 mg/dL (2.8-4.1); Potassium 3.2 mmol/L (3.4-5.1); Sodium 130 mmol/L (137-145)
--- NOTE | 2023-10-25 07:33 | PM.PN.1 ---
Subjective Subjective Interval history: Less nausea, no diarrhea. She does have months long history of dysphagia. No overt regurgitation, she has had vomiting and diarrhea for over a week. A Dobbhoff was placed with incomplete migration yesterday, repeat KUB indicates better progression. Unfortunately the tube is kinked, and the wire can not be removed. They have no particular affiliation with [facility] as they were mostly there about 10 years ago. They are open to getting an opinion from Dr. Ponce at [facility]. Dr. Ponce specializes in foregut issues and surgery. Exam Vital Signs (past 8 hours): - 10/25/23 03:00 Temperature 97.2 F L Pulse Rate 91 H Respiratory Rate 16 Blood Pressure 134/59 L Pulse Oximetry 92 Oxygen Flow Rate 0 Oxygen Delivery Method Room Air Oxygen Flow Rate 0 Narrative Exam Narrative: NAD, alert and oriented. Fluent speech. NGT in nares Lungs are clear, normal rate and effort. Heart is regular, no murmur gallop or rub. Abdomen is soft, non distended. Extremities are free of edema. Objective Labs 10/25/23 13:20 10/25/23 05:25 Labs: Laboratory Results - last 24 hr 10/25/23 05:25 WBC 11.1 H RBC 3.92 L Hgb 11.8 L Hct 33.8 L MCV 86.4 MCH 30.1 MCHC 34.8 RDW 12.7 Plt Count 349 Neut % (Auto) 80.8 H Lymph % (Auto) 10.2 L [place] % (Auto) 7.3 Eos % (Auto) 1.0 L Baso % (Auto) 0.7 Neut # (Auto) 8900 H Lymph # (Auto) 1100 [place] # (Auto) 800 Eos # (Auto) 100 Baso # (Auto) 100 Sodium 130 L Potassium 3.2 L Chloride 99 Carbon Dioxide 25 BUN 14 Creatinine 0.68 Estimated GFR > 60 BUN/Creatinine Ratio 20.6 Glucose 75 L Calcium 7.9 L Phosphorus 2.5 L Magnesium 1.7 Total Bilirubin 1.1 AST 21 ALT 17 Alkaline Phosphatase 71 Total Protein 6.0 L Albumin 3.1 L Globulin 2.9 Albumin/Globulin Ratio 1.1 [facility] Medical History Hyperlipidemia Hypertension Surgical History History of cholecystectomy Social History household members: spouse Smoking Status: Never smoker alcohol intake: current Assessment & Plan Assessment & Plan narrative: 1. Gastroenteritis, present on admission and improving. 2. Intractable vomiting, present on admission and improving. 3. Acute UTI, present on admission and improving. 4. Hyponatremia, present on admission and improving. 5. Hyperglycemia, present on admission and improving. 6. dysphagia, history of hiatal hernia repair. -Failed outpatient antibx -WBC downtrending -CT with unchanged distal descending and sigmoid diverticulitis. -Reported dysphagia on 10/21, barium swallow showed severe dysmotility. -Continue zosyn for diverticular disease. (7 day course, started 10/19). -EGD shows no obstruction, mild gastritis. Discussed with GI whom recommend nutrition ideally via NG tube and outpatient manometry as next step in evaluation. -Continue NPO, IV fluids. -UCx 10/15 Ecoli mazariegos sensitive, antibx coverage as above will adequately cover -CT with endometrial changes, follow up ith PCP. Fluid in the endometrial canal, not typical for patient's age. Consider pelvic ultrasound once patient's acute illness has resolved. Today the Dobbhoff had a kinked line and could not have the wire removed. We will remove the Dobbhoff in place a new Dobbhoff. I will also reach out to Dr. Ponce, at [facility] to see what her opinions are. Chronic and stable medical conditions HTN, hypertensive on admit, trending down thus will hold home antihypertensives Atenolol, Telmisartan and monitor for timing of reinitiation HLD, continue home Lovastatin formulary equivalent Insomnia, continue home Trazadone GERD, continue home PPI Chronic allergies, continue home Flonase, initiate guaifenesin prn Dispo: home, if tolerating NG tube feedings can discharge home in a couple of days. If cannot tolerate NG tube or feeds will need TPN. Likely 1-2 days. Quality VTE Deep Vein Thrombosis/Pulmonary Embolism Present on Admission: No
--- NOTE | 2023-10-25 07:36 | DI.RAD.S_ITS ---
PROCEDURE: XR ABDOMEN 1V INDICATIONS: Assess dobhoff position TECHNIQUE: One view of the abdomen acquired. COMPARISON: [facility], CR, XR CHEST 1V, 10/24/2023, 19:27. FINDINGS: Surgical changes and devices: Dobbhoff feeding tube is present with the distal end projecting over the medial left upper quadrant. It appears kinked and the tip is directed cranial. The position has not changed since the prior exam. There are overlying monitoring wires. Surgical clips are present in the right upper quadrant and left upper quadrant of the abdomen. Small surgical clips in the left breast tissue. Bowel: Bowel gas pattern is normal. There is oral contrast in normal caliber loops of bowel including distal colon. Soft tissues: No suspicious abdominal calcifications. Visualized solid organ contours appear normal in size. Bones: No suspicious bony lesions. IMPRESSION: Stable position of Dobbhoff feeding tube compared to the prior exam. The tip is in the stomach, though directed cranial, and material may flow retrograde towards the GE junction. Dictated by: Deisy Han M.D. on 10/25/2023 at 8:54 Approved by: Deisy Han M.D. on 10/25/2023 at 8:58
[2023-10-25 08:30] VITALS: BP 151/68; PULSE 101; RESP 15; TEMP 36.2; O2SAT 96
[2023-10-25] MEDS: SODIUM CHLORIDE 0.9% FLUSH 10 ML IV (09:48)
[2023-10-25] MEDS: ENOXAPARIN 40 MG/0.4 ML SYRINGE SUBCUT (09:48)
[2023-10-25] MEDS: FLUTICASONE 120 SPRAY/16 GM SPRAY.SUSP NASAL (09:49)
[2023-10-25 11:59] VITALS: BP 149/70; PULSE 69; RESP 16; TEMP 36.8; O2SAT 94
[2023-10-25 13:27] LABS: Add Manual Diff / Slide Review NO; Basophils Absolute Auto 0 /uL (0-100); Basophils Percent Auto 0.4 % (0-2); Eosinophils Absolute Auto 100 /uL (0-450); Eosinophils Percent Auto 1.3 % (2-4); Hematocrit 35.6 % (36-46); Hemoglobin 12.3 g/dL (12.0-16.0); Lymphocytes Absolute Auto 1300 /uL (1100-4500); Lymphocytes Percent Auto 11.3 % (25-40); Mean Corpuscular HGB Conc 34.6 % (30-36); Mean Corpuscular Volume 86.8 fL (80-100); Monocytes Absolute Auto 800 /uL (0-900); Monocytes Percent Auto 7.3 % (3-14); Neutrophils Absolute Auto 9100 /uL (1500-7000); Neutrophils Percent Auto 79.7 % (50-75); Platelet Count 359 X10^3/uL (150-400); Red Cell Distribution Width 12.8 % (11.6-14.8); White Blood Cell Count 11.4 X10^3/uL (4.5-11.0)
[2023-10-25 13:43] LABS: Alanine Aminotransferase 17 IU/L (<35); Albumin 3.4 g/dL (3.5-5.0); Albumin Globulin Ratio 1.3 (1.0-2.8); Alkaline Phosphatase 76 U/L (38-126); Aspartate Aminotransferase 24 IU/L (14-36); BUN Creatinine Ratio 20.7 (6-22); Bilirubin Total 1.2 mg/dL (0.2-1.3); Blood Urea Nitrogen 12 mg/dL (7-17); Calcium 7.8 mg/dL (8.4-10.2); Carbon Dioxide 23 mmol/L (22-32); Chloride 99 mmol/L (98-107); Estimated Glomerular Filt Rate > 60 mL/min (>60); Globulin 2.7 g/dL (1.7-4.1); Glucose 82 mg/dL (80-110); HEMOLYSIS < 15 (0-50); Magnesium 1.7 mg/dL (1.6-2.3); Phosphorous 2.3 mg/dL (2.8-4.1); Potassium 3.1 mmol/L (3.4-5.1); Sodium 131 mmol/L (137-145); Total Protein 6.1 g/dL (6.3-8.2)
--- NOTE | 2023-10-25 14:22 | DI.RAD.S_ITS ---
PROCEDURE: XR ABDOMEN 1V INDICATIONS: Dobhoff placement verifcation TECHNIQUE: One view of the abdomen acquired. COMPARISON: [facility], CR, XR ABDOMEN 1V, 10/25/2023, 8:25. FINDINGS: Surgical changes and devices: Dobbhoff feeding tube is in place. The course has improved and the tip is in the expected location of the distal stomach. There are surgical clips in the upper abdomen and left breast. Overlying monitoring wires are present. Bowel: Nonspecific, nonobstructive bowel gas pattern with retained oral contrast, similar to the most recent prior study. Soft tissues: No suspicious abdominal calcifications. Visualized solid organ contours appear normal in size. Bones: No suspicious bony lesions. IMPRESSION: Improved position of Dobbhoff feeding tube. Nonspecific, nonobstructive bowel gas pattern. Dictated by: Deisy Han M.D. on 10/25/2023 at 15:52 Approved by: Deisy Han M.D. on 10/25/2023 at 15:52
--- NOTE | 2023-10-25 14:47 | DIET.CONS ---
Dietary Consultation Note Admission Date: 10/20/2023 20:48 Assessment: 82 y F presented with intractable N/V/D. Was dx with diverticulitis at previous ED visit. Nutrition consulted for TF recommendations. Met with pt at bedside who reports no intake or clear liquids only since last Sunday 10/15. Before that reports normal appetite/intake. Pt at risk for refeeding syndrome d/t inadequate po intake. Phos and K+ low. Spoke w/ pharmacist, plan to replete per protocol. Per RN, difficulties with feeding tube position. X-ray to confirm feeding tube placement before initiation of tube feeds. Nutrition focused physical exam performed with no significant results. Areas assessed: temporalis, clavicle and scapular region, interosseous, buccal and orbital fat pads, triceps. Ht: 165.1 cm Wt: 68.7 kg BMI: 25.2 UBW: 71.8 kg per pt report (-4% weight loss in 9 days, severe) Last BM: 10/22/23 (10/22/23 04:57) MNA: 11 Santos Score: 18 Diet: 10/22/23 18:06 NPO Diet Diet Modifications: NPO Type: NPO except for Ice Chips 10/25/23 Dinner Tube Feeding Diet Diet Modifications: TF Supplement type: Jevity 1.2 irish TF mode of delivery: Continuous Starting flow rate mL/hr: 10 Flow rate goal mL/hr: 50 Titration Schedule to reach Goal Rate: 10/day Max total daily volume in mL: 1,500 Free fluid: 400 Free Water Frequency: Q4H Nutrition Percent Meal Consumed 25% 10/23/23 18:00 Labs: RBC 4.10 X10^6/uL (4.0-5.2) 10/25/23 13:20 Hgb 12.3 g/dL (12.0-16.0) 10/25/23 13:20 Hct 35.6 % (36-46) L 10/25/23 13:20 Creatinine 0.58 mg/dL (0.52-1.04) 10/25/23 13:20 Lactate 1.4 mmol/L (0.7-2.1) 10/20/23 19:05 Nutrition Diagnosis: Severe Acute Protein Calorie Malnutrition r/t decreased ability to consume sufficient energy in setting of esophageal dsymotility as evidenced by no po intake or clear liquids for 9 days per diet recall, severe and 4% weight loss in 9 days, severe Interventions: 1. Recommend replete potassium and phosphorus per protocol. 2. When tube feeding position is confirmed, recc initiating continuous enteral nutrition with Jevity 1.2 at 10 ml/hr. Rate may be advanced by 10 ml/hr q8-12h as tolerated if not showing signs of refeeding syndrome. Goal rate is continuous enteral feeding of Jevity 1.2 at 60 ml/hr providing 1728 kcals, 80 grams protein, 1162 ml feed water. Add 100 mL flushes q4h. Feed plus flushes provide 25 mL/kg fluids. 3. Monitor K+, Mg, phos BID for first 3 days of tube feeding. Replete per protocol. 4. Recommend initiating 100 mg thiamine daily for first 5 days to reduce risk of refeeding syndrome EER: 1700 kcals (25 kcals/kg per BMI) 80-85 g protein (1.25 g/kg per malnutrition) Monitoring/Evaluations: will follow closely for TF initiation, tolerance, advancement, home d/c plan Electronically Signed by: Marisel Armstrong 10/25/23 14:47 Clinical Dietitian [address] [address]
[2023-10-25 16:00] VITALS: BP 150/68; PULSE 101; RESP 15; O2SAT 95
--- NOTE | 2023-10-25 16:37 | DI.RAD.S_ITS ---
PROCEDURE: XR ABDOMEN 1V INDICATIONS: dobhoff placement TECHNIQUE: One view of the abdomen acquired. COMPARISON: [facility], , XR ABDOMEN 1V, 10/25/2023, 14:24. FINDINGS: Surgical changes and devices: Dom a feeding tube is present. The tip projects over the right upper quadrant of the abdomen. There are surgical clips in the upper quadrant of the abdomen and left breast tissue. Bowel: Bowel gas pattern is nonspecific. Retained oral contrast is seen.. Soft tissues: No suspicious abdominal calcifications. Visualized solid organ contours appear normal in size. Bones: No suspicious bony lesions. IMPRESSION: Adequate placement of Dobbhoff feeding tube projecting over the expected location of the distal stomach. Dictated by: Deisy Han M.D. on 10/25/2023 at 17:27 Approved by: Deisy Han M.D. on 10/25/2023 at 17:28
--- NOTE | 2023-10-25 16:39 | CM.DPNOTE ---
DCP Note [employer] reviewed EMR. Per hospitalist, plan is to slowly advance diet. NG tube was kinked. Per provider, anticipate dc home if tolerating NG tube in a few days. If note, home on TPN. Per dietary, labs pending. Dietary plan pending. CM team will follow closely once appropriate nutrition plan established. CM team will continue to follow closely. Anticipating home with spouse when medically cleared either with TPN or tube feeds. CM Team will continue to follow for coordination of discharge plans. BEATRIZ Culp
[2023-10-25] MEDS: POTASSIUM CHLORIDE IN WATER 10 MEQ/100 ML PIGGYBACK 100 MEQ IV ×4 (16:59→20:46)
[2023-10-25 19:00] VITALS: BP 144/71; PULSE 97; RESP 18; TEMP 37.5; O2SAT 94
[2023-10-25] MEDS: MAGNESIUM SULFATE 2 GM/50 ML PIGGYBACK IV (22:05)
[2023-10-25] MEDS: POTASSIUM PHOSPHATE 15 MMOL in SODIUM CHLORIDE 0.9% 250 ML 127.5 MMOL IV (22:06)
[2023-10-25 23:00] VITALS: BP 156/69; PULSE 106; RESP 18; TEMP 36.8; O2SAT 92
[2023-10-26] MEDS: PIPERACILLIN/TAZO 3.375 GM in SODIUM CHLORIDE 0.9% 100 ML IV ×2 (01:42→10:13)
[2023-10-26 03:00] VITALS: BP 160/71; PULSE 104; RESP 17; TEMP 36.5; O2SAT 92
[2023-10-26 06:28] LABS: Add Manual Diff / Slide Review NO; Basophils Absolute Auto 0 /uL (0-100); Basophils Percent Auto 0.4 % (0-2); Eosinophils Absolute Auto 200 /uL (0-450); Eosinophils Percent Auto 1.5 % (2-4); Hematocrit 33.7 % (36-46); Hemoglobin 11.8 g/dL (12.0-16.0); Lymphocytes Absolute Auto 1200 /uL (1100-4500); Mean Corpuscular Hemoglobin 30.1 PG (26-34); Monocytes Absolute Auto 800 /uL (0-900); Monocytes Percent Auto 6.7 % (3-14); Neutrophils Absolute Auto 9400 /uL (1500-7000); Neutrophils Percent Auto 81.4 % (50-75); Platelet Count 368 X10^3/uL (150-400); Red Blood Cell Count 3.92 X10^6/uL (4.0-5.2); Red Cell Distribution Width 12.7 % (11.6-14.8); White Blood Cell Count 11.5 X10^3/uL (4.5-11.0)
[2023-10-26 06:43] LABS: Alanine Aminotransferase 17 IU/L (<35); Albumin 3.2 g/dL (3.5-5.0); Albumin Globulin Ratio 1.2 (1.0-2.8); Alkaline Phosphatase 76 U/L (38-126); Aspartate Aminotransferase 24 IU/L (14-36); BUN Creatinine Ratio 15.8 (6-22); Blood Urea Nitrogen 9 mg/dL (7-17); Calcium 7.9 mg/dL (8.4-10.2); Carbon Dioxide 26 mmol/L (22-32); Chloride 99 mmol/L (98-107); Estimated Glomerular Filt Rate > 60 mL/min (>60); Globulin 2.7 g/dL (1.7-4.1); Glucose 118 mg/dL (80-110); HEMOLYSIS < 15 (0-50); Magnesium 2.1 mg/dL (1.6-2.3); Phosphorous 2.3 mg/dL (2.8-4.1); Potassium 3.3 mmol/L (3.4-5.1); Sodium 130 mmol/L (137-145); Total Protein 5.9 g/dL (6.3-8.2)
--- NOTE | 2023-10-26 07:43 | PM.PN.1 ---
Subjective Subjective Interval history: She was tolerating the nasal feedings without difficulty. She was progressing up to 50 mL an hour. She was also getting IV fluid, and Zosyn. She is receiving potassium riders as well. She would 1 episode of loose stools this morning, limited volume. She denies any abdominal pain. Exam Vital Signs (past 8 hours): - 10/26/23 03:00 Temperature 97.7 F Pulse Rate 104 H Respiratory Rate 17 Blood Pressure 160/71 H Pulse Oximetry 92 Oxygen Flow Rate 0 Oxygen Delivery Method Room Air Oxygen Flow Rate 0 Narrative Exam Narrative: NAD, alert and oriented. Fluent speech. Dobbhoff in nose. Lungs are clear, normal rate and effort. Heart is regular, no murmur gallop or rub. Abdomen is soft, non distended. Extremities are free of edema. Objective Labs 10/26/23 05:35 10/26/23 05:35 Labs: Laboratory Results - last 24 hr 10/25/23 10/26/23 13:20 05:35 WBC 11.4 H 11.5 H RBC 4.10 3.92 L Hgb 12.3 11.8 L Hct 35.6 L 33.7 L MCV 86.8 86.0 MCH 30.0 30.1 MCHC 34.6 35.0 RDW 12.8 12.7 Plt Count 359 368 Neut % (Auto) 79.7 H 81.4 H Lymph % (Auto) 11.3 L 10.0 L [place] % (Auto) 7.3 6.7 Eos % (Auto) 1.3 L 1.5 L Baso % (Auto) 0.4 0.4 Neut # (Auto) 9100 H 9400 H Lymph # (Auto) 1300 1200 [place] # (Auto) 800 800 Eos # (Auto) 100 200 Baso # (Auto) 0 0 Sodium 131 L 130 L Potassium 3.1 L 3.3 L Chloride 99 99 Carbon Dioxide 23 26 BUN 12 9 Creatinine 0.58 0.57 Estimated GFR > 60 > 60 BUN/Creatinine Ratio 20.7 15.8 Glucose 82 118 H Calcium 7.8 L 7.9 L Phosphorus 2.3 L 2.3 L Magnesium 1.7 2.1 Total Bilirubin 1.2 1.0 AST 24 24 ALT 17 17 Alkaline Phosphatase 76 76 Total Protein 6.1 L 5.9 L Albumin 3.4 L 3.2 L Globulin 2.7 2.7 Albumin/Globulin Ratio 1.3 1.2 [facility] Medical History Hyperlipidemia Hypertension Surgical History History of cholecystectomy Social History household members: spouse Smoking Status: Never smoker alcohol intake: current Assessment & Plan Assessment & Plan narrative: 1. Gastroenteritis, present on admission and improving. 2. Intractable vomiting, present on admission and improving. 3. Acute UTI, present on admission and improving. 4. Hyponatremia, present on admission and improving. 5. Hyperglycemia, present on admission and improving. 6. dysphagia, history of hiatal hernia repair. -Failed outpatient antibx -WBC downtrending -CT with unchanged distal descending and sigmoid diverticulitis. -Reported dysphagia on 10/21, barium swallow showed severe dysmotility. -Continue zosyn for diverticular disease. (6 day course, started 10/19). Stop today. -EGD shows no obstruction, mild gastritis. Discussed with GI whom recommend nutrition ideally via NG tube and outpatient manometry as next step in evaluation. -Continue NPO, IV fluids. -UCx 10/15 Ecoli mazariegos sensitive, antibx coverage as above will adequately cover -CT with endometrial changes, follow up ith PCP. Fluid in the endometrial canal, not typical for patient's age. Consider pelvic ultrasound once patient's acute illness has resolved. Chronic and stable medical conditions HTN, hypertensive on admit, trending down thus will hold home antihypertensives Atenolol, Telmisartan and monitor for timing of reinitiation HLD, continue home Lovastatin formulary equivalent Insomnia, continue home Trazadone GERD, continue home PPI Chronic allergies, continue home Flonase, initiate guaifenesin prn PLAN: -discuss with Dr Ponce ([facility], foregut surgeon) -stop Zosyn -stop IVF -advance enteral feeds Patient requiring enteral nutrition via nasal Dobhoff) due to a functional impairment of the gastrointestinal tract secondary to esophageal dysmotility.Enteral nutrition will be required for 2 weeks and will provide the majority of the patient's nutrition. [facility] to manage tube feedings.. Outpatient provider to manage after discharge [facility] Dispo: home, if tolerating NG tube feedings can discharge home in a 1 day. Quality VTE Deep Vein Thrombosis/Pulmonary Embolism Present on Admission: No
[2023-10-26 08:00] VITALS: BP 153/84; PULSE 100; RESP 16; TEMP 36.3; O2SAT 92
[2023-10-26] MEDS: FLUTICASONE 120 SPRAY/16 GM SPRAY.SUSP NASAL (08:31)
[2023-10-26] MEDS: ENOXAPARIN 40 MG/0.4 ML SYRINGE SUBCUT (08:31)
[2023-10-26] MEDS: SODIUM CHLORIDE 0.9% 1,000 ML 75 ML IV (08:48)
[2023-10-26] MEDS: SODIUM CHLORIDE 0.9% FLUSH 10 ML IV ×2 (09:00→20:11)
[2023-10-26 12:00] VITALS: BP 155/81; PULSE 104; RESP 16; TEMP 36.2; O2SAT 93
--- NOTE | 2023-10-26 12:02 | CM.DPNOTE ---
Addendum entered by BEATRIZ Culp 10/26/23 13:06: Per dietary and hospitalist, want to hold for another day to monitor labs/finalize nutrition needs. TELEVISION NEWS PRODUCER called Darek at [facility] and updated him. Will continue to follow with CM team tomorrow. TELEVISION NEWS PRODUCER faxed the signed/updated PN from today with [facility] order information. TELEVISION NEWS PRODUCER met with pt in room, confirmed we should be good with [facility] whenever she does dc. Pt denies any other CM needs at this time,. SL Original Note: DCP Note [employer]ODUC[employer] reviewed EMR. Per provider in morning rounds, pt able to tolerate tube feeds so far. Consulting with esophageal surgeon for expedited OP follow up. will need a few weeks of tube feeds in the mean time. Could dc today vs tomorrow. TELEVISION NEWS PRODUCER spoke with Darek, agreed to review. report medicare would cover 80% of the cost and for life would likely cover the rest. RACHELLE Farrar kindly agreed to send initial ref information for review to [facility]. TELEVISION NEWS PRODUCER met with pt and spouse in room. Reviewed plan. They report they're in agreement. P: anticipate dc home with spouse support and [facility] to follow for tube feeds when arranged, close OP f/u with esophageal surgeon. CM Team will continue to follow closely. BEATRIZ Culp
[2023-10-26] MEDS: POTASSIUM PHOSPHATE 15 MMOL in SODIUM CHLORIDE 0.9% 250 ML 127.5 MMOL IV (12:04)
[2023-10-26] MEDS: POTASSIUM CHLORIDE IN WATER 10 MEQ/100 ML PIGGYBACK 100 MEQ IV ×4 (12:06→17:30)
[2023-10-26] MEDS: AMOX/CLAV 400 MG/5ML SUSP 875 MG TUBE ×2 (14:28→20:10)
[2023-10-26 16:00] VITALS: BP 154/59; PULSE 105; RESP 16; TEMP 36.2; O2SAT 92
[2023-10-26 20:00] VITALS: BP 151/77; PULSE 111; RESP 18; TEMP 35.9; O2SAT 92
[2023-10-26] MEDS: TRAZODONE 50 MG TABLET 100 MG PO (20:09)
[2023-10-26] MEDS: ATORVASTATIN 20 MG TABLET 10 MG TUBE (20:10)
[2023-10-27] VITALS: BP 146/80; PULSE 110; RESP 17; TEMP 36.1; O2SAT 94
[2023-10-27 04:00] VITALS: BP 150/66; PULSE 84; RESP 17; TEMP 36.5; O2SAT 96
[2023-10-27 07:19] LABS: Blood Urea Nitrogen 9 mg/dL (7-17); Calcium 8.5 mg/dL (8.4-10.2); Carbon Dioxide 27 mmol/L (22-32); Chloride 99 mmol/L (98-107); Estimated Glomerular Filt Rate > 60 mL/min (>60); Glucose 157 mg/dL (80-110); HEMOLYSIS < 15 (0-50); Magnesium 1.8 mg/dL (1.6-2.3); Phosphorous 2.6 mg/dL (2.8-4.1); Potassium 3.8 mmol/L (3.4-5.1); Sodium 130 mmol/L (137-145)
[2023-10-27 08:00] VITALS: BP 166/96; PULSE 113; RESP 16; TEMP 36.4; O2SAT 93
--- NOTE | 2023-10-27 08:37 | CM.DPNOTE ---
DCP Cont According to conversation with Darek and [facility] P [phone]. MCR will not cover the enteral feeds unless patient requires it more than 90 days. If patient only requires for two weeks, it is expected that patient will need to pay out of pocket. Darek gives an approx $200-300 quote for two weeks although will need to get a firm quote from his team. Updated provider. Following closely for coordination. SHRUTHI
[2023-10-27] MEDS: BUDESONIDE 0.5 MG/2 ML NEB INH (08:45)
[2023-10-27] MEDS: FLUTICASONE 120 SPRAY/16 GM SPRAY.SUSP NASAL (08:56)
[2023-10-27] MEDS: LOSARTAN 50 MG TABLET 100 MG TUBE (09:05)
[2023-10-27] MEDS: ASPIRIN 81 MG CHEW TAB TUBE (09:05)
[2023-10-27] MEDS: ENOXAPARIN 40 MG/0.4 ML SYRINGE SUBCUT (09:05)
[2023-10-27] MEDS: AMLODIPINE 5 MG TABLET 2.5 MG TUBE (09:05)
[2023-10-27] MEDS: SODIUM CHLORIDE 0.9% FLUSH 10 ML IV (09:07)
--- NOTE | 2023-10-27 09:27 | DIET.CONS ---
Dietary Consultation Note Admission Date: 10/20/2023 20:48 Assessment: Nutrition f/u. Pt going home on enteral feeding via NG tube. Continuous enteral feeding running at goal rate. Trial of bolus feed this morning with goal of 360 mL 4x/day + flushes to meet needs. Ht: 165.1 cm Wt: 68.7 kg BMI: 25.2 Last BM: 10/27/23 (10/27/23 07:00) MNA: 11 Santos Score: 21 Diet: 10/26/23 Lunch Tube Feeding Diet Diet Modifications: TF Supplement type: Jevity 1.2 irish TF mode of delivery: Continuous Starting flow rate mL/hr: 10 Flow rate goal mL/hr: 60 Titration Schedule to reach Goal Rate: 10 ml q4-6h Max total daily volume in mL: 1,440 Free fluid: 100 Free Water Frequency: Q4H Nutrition Percent Meal Consumed NPO 10/26/23 18:03 Type of Feeding Tube Dobhoff 10/26/23 00:31 Type of Feeding Tube Dobhoff 10/25/23 17:58 Labs: RBC 3.92 X10^6/uL (4.0-5.2) L 10/26/23 05:35 Hgb 11.8 g/dL (12.0-16.0) L 10/26/23 05:35 Hct 33.7 % (36-46) L 10/26/23 05:35 Creatinine 0.53 mg/dL (0.52-1.04) 10/27/23 06:10 Lactate 1.4 mmol/L (0.7-2.1) 10/20/23 19:05 Nutrition Diagnosis: Severe Acute Protein Calorie Malnutrition r/t decreased ability to consume sufficient energy in setting of esophageal dsymotility as evidenced by no po intake or clear liquids for 9 days per diet recall, severe and 4% weight loss in 9 days, severe Interventions: 1. Bolus enteral feeding of Jevity 1.2 of 360 mL 4x/day with 60 mL flushes before and after feed plus 120 mL flush BID for total of 1728 kcals, 80 g protein, and total of 1882 mL fluid (feed+flush) 2. [facility] to f/u outpatient EER: 1700 kcals (25 kcals/kg per BMI) 80-85 g protein (1.25 g/kg per malnutrition) Monitoring/Evaluations: bolus tolerance Electronically Signed by: Marisel Armstrong 10/27/23 09:27 Clinical Dietitian [address] [address]
[2023-10-27] MEDS: AMOX/CLAV 400 MG/5ML SUSP 875 MG TUBE (09:30)
--- NOTE | 2023-10-27 11:30 | PC.NURSE ---
Day shift: Pt off unit at approx 1130 for procedure.
[2023-10-27 11:38] VITALS: BP 158/83; PULSE 115; RESP 16; TEMP 36.9; O2SAT 93
--- NOTE | 2023-10-27 12:17 | CM.DPNOTE ---
DC Note According to Darek, [facility], Medicare will not cover enteral feeding for less than 90 days. Patient's for life coverage will help with some of the out of pocket cost expected for outpatient enteral feeds x2 weeks. Patient and spouse updated, both agreeable to plan. [facility] has arranged one of their RNs to meet with patient and spouse this afternoon in their home at 1600 to complete the initial teach. Updated provider. Darek at [facility] has what he needs from [facility] for this referral. Plan: Discharge home today with supportive spouse to assist, [facility] to manage enteral feeds x 2 weeks, ongoing orders will need to be managed by PCP MAXIMILIAN Osuna (updated Darek, [facility]) transport via spouse JW
--- NOTE | 2023-10-27 12:20 | P.DS_ITS ---
History of Present Illness History of Present Illness Chief complaint: vomiting, diarrhea Narrative: renetta Mercer 82 female with PMH HTN, HLD presented with persistent diarrhea, nausea vomiting. Nausea, nonbloody nonbilious emesis started 10/14 in the middle of the night. Presented to ED, diagnosed with acute sigmoid diverticulitis and started on Augmentin, compazine. Returned to ED 10/17 for onset of diarrhea post antibiotic x2 doses. Started after eating breakfast x2 episodes. Nonbloody stool without abdominal pain. Discharged home in stable condition with return instructions. Returned to ED today for persistent nausea, vomiting, diarrhea despite compazine. Denies any blood in stool or emesis. Denies fever, chills, night sweats, SOB, CP. Generalized weakness, fatigue. ED treatment with 1L NS, Zofran, Compazine, Benadryl, Dilaudid with sujective improvement Discharge Providers Provider Date of admission: 10/20/23 20:48 Discharge Date: 10/27/23 Primary care physician: Matteo Begum MD Consults: 10/24/23 09:58 Consult to Speech Therapy Evaluate & Treat Comment: sudden difficulty swallowing Physician Instructions: Evaluate and treat 10/24/23 16:06 Consult to Dietitian, Adult Routine Comment: Reason For Exam: tube feeding recommendations Discharge provider: Harjinder Alvarez MD Summary Hospital Course Discharge Diagnosis: 1. Diverticulitis, present on admission and improving. 2. Intractable vomiting, present on admission and improving. 3. Acute UTI, present on admission and improving. 4. Hyponatremia, present on admission and improving. 5. Hyperglycemia, present on admission and improving. 6. dysphagia, history of hiatal hernia repair. Hospital Course: She was admitted with diverticulitis and started on IV antibiotics. Dysphagia was discovered as a subacute and chronic complaint. An esophageal barium swallow revealed severe esophageal dysmotility. She has a history of a hiatal hernia repair at [facility]. The patient underwent EGD which was negative for obstruction and revealed mild gastritis only. She was also treated for an E coli pansensitive urine tract infection. The case was discussed briefly with Dr. Ponce, at [facility]. Initial recommendations from [facility] GI included placing an enteral tube feed and outpatient referral for manometry. A Dobbhoff was placed and the patient tolerated tube feeds without difficulty. These were arranged for at home with infusion solutions. Dr. Ponce will see the patient for manometry and further evaluation of her dysphagia. The patient is hiatal hernia repair was over 10 years ago at [facility] and may have including a paraesophageal hernia repair at that time. Status at Discharge Cognitive/behavioral status at discharge: oriented Functional status at discharge: independent ambulation Overall status at discharge: patient is back to baseline Time Spent with Patient Time spent: Greater than 30 minutes Exam Vital Signs (past 8 hours): - 10/27/23 08:00 10/27/23 11:38 Temperature 97.5 F L 98.4 F Pulse Rate 113 H 115 H Respiratory Rate 16 16 Blood Pressure 166/96 H 158/83 H Pulse Oximetry 93 93 Oxygen Delivery Method Room Air Oxygen Flow Rate 0 Narrative Exam Narrative: NAD, alert and oriented. Fluent speech. Lungs are clear, normal rate and effort. Heart is regular, no murmur gallop or rub. Abdomen is soft, non distended. Extremities are free of edema. Dobhoff in place. Objective Imaging CT scan - abdomen: Radiologist's impression: Persistent and fairly similar findings of acute distal descending and sigmoid diverticulitis. No evidence of complication. Fluid in the endometrial canal, not typical for patient's age. Consider pelvic ultrasound once patient's acute illness has resolved. Mild hepatic steatosis. Moderate-sized hiatal hernia. Barium swallow:: Radiologist's impression: Conner fundoplication not identified. Moderate hiatal hernia. Severe esophageal dysmotility. Labs 10/26/23 05:35 10/27/23 06:10 Labs: Laboratory Results - last 24 hr 10/27/23 06:10 Sodium 130 L Potassium 3.8 Chloride 99 Carbon Dioxide 27 BUN 9 Creatinine 0.53 Estimated GFR > 60 BUN/Creatinine Ratio 17.0 Glucose 157 H Calcium 8.5 Phosphorus 2.6 L Magnesium 1.8 [facility] Medical History Hyperlipidemia Hypertension Surgical History History of cholecystectomy Social History household members: spouse Smoking Status: Never smoker alcohol intake: current Discharge Assessment & Plan Assessment and Plan Assessment: 1. Diverticulitis, present on admission and improving. 2. Intractable vomiting, present on admission and improving. 3. Acute UTI, present on admission and improving. 4. Hyponatremia, present on admission and improving. 5. Hyperglycemia, present on admission and improving. 6. dysphagia, history of hiatal hernia repair. Plan of Treatment: Her glucose readings were relatively stable and wall under 160. She was stable for discharge home with a Dobbhoff and bolus tube feeds. I have communicated with Dr. Ponce at [facility] she will arrange a expedited to esophageal manometry and follow up in clinic. Discharge Plan Discharge Plan Patient Disposition: Home Provider Discharge Comment: Stable for discharge with home enteral feeds via a nasal Dobbhoff. [facility] we will start today. Dr. Ponce at [facility] will arrange a follow up appointment and esophageal manometry. Discharge orders & Medications Prescriptions: New amoxicillin-pot clavulanate 400-57 mg/5 mL Suspension For Reconstitution 10 ml TUBE BID Qty: 140 0RF Continued fluticasone propionate 50 mcg/actuation spray,suspension 1 spray intranasal BID lovastatin 40 mg tablet 40 mg PO DAILY omeprazole 20 mg capsule,delayed release(DR/EC) 40 mg PO DAILY losartan 50 mg Tablet 100 mg PO DAILY Centrum Silver 1 tab PO DAILY Pulmicort 180 mcg inhalation BID aspirin 81 mg tablet 81 mg PO DAILY trazodone 50 mg tablet 100 mg PO BEDTIME amlodipine 2.5 mg tablet 2.5 mg PO DAILY triamterene-hydrochlorothiazid 37.5-25 mg tablet 1 tab PO DAILY cyclosporine 0.05 % dropperette 1 drp EYE-BOTH DAILY Follow up/Referrals: Matteo Begum MD [Primary Care Provider] - Tiara Ponce MD [Non-Staff] - (Esophageal dysmotility a H/O HH repair. ) Visit Report/Discharge Packet Instructions: DI for Hiatal Hernia, DI for Esophagitis Stand Alone Forms: Patient Portal/API Discharge Data Primary Care Provider: Matteo Begum Quality VTE Deep Vein Thrombosis/Pulmonary Embolism Present on Admission: No
--- NOTE | 2023-10-27 12:58 | PC.NURSE ---
Day shift: Tolerated 360ml bolus feed. Pt in bathroom now attempting a BM.
--- NOTE | 2023-10-27 13:59 | PC.NURSE ---
Day shift: Paperwork signed and all questions answered. Pt has all personal belongings. scripts sent to Pt's pharmacy electronic. Home infusion is set up per BEATRIZ Garcia. Teaching done by RN Abiodun. Abiodun also went over how to crush meds and give in the NG/Dobbhoff tube. Spouse is driving Pt home to [facility]. New tape was also applied to secure the DobbHoff to nose.
== END 2023-10-27 14:09 | disposition home or self-care (01) | DRG 391 ==
LOC: ED 18:17 → AC 10-21 08:04
PROVIDERS: Emergency Medicine; Hospitalist; Internal Medicine; Surgery; Admitting Provider Internal Medicine; Emergency Provider Emergency Medicine; PCP Family Medicine; Referring Provider Emergency Medicine; Visit Provider Internal Medicine
PROC: 0DJ08ZZ Inspection of Upper Intestinal Tract, Via Natural or Artificial Opening Endoscopic (ICD-10-PCS; CPT 43235; principal; 2023-10-24 09:00)
DX: K57.32 Diverticulitis of large intestine without perforation or abscess without bleeding (principal); E43 Unspecified severe protein-calorie malnutrition; N39.0 Urinary tract infection, site not specified; E87.1 Hypo-osmolality and hyponatremia; R19.7 Diarrhea, unspecified; R11.2 Nausea with vomiting, unspecified; B96.20 Unspecified Escherichia coli [E. coli] as the cause of diseases classified elsewhere; I10 Essential (primary) hypertension; E78.5 Hyperlipidemia, unspecified; G47.00 Insomnia, unspecified; K21.9 Gastro-esophageal reflux disease without esophagitis; T78.40XA Allergy, unspecified, initial encounter; K44.9 Diaphragmatic hernia without obstruction or gangrene; K29.80 Duodenitis without bleeding; Z68.25 Body mass index [BMI] 25.0-25.9, adult
CPT/HCPCS: 36415; 71045; 74018; 74177; 74220; 80048; 80053; 81003; 81015; 83605; 83735; 84100; 85025; 87040; 87507; 93005; 94640; 96365; 96375; 99281; 99282; 99284; 99285; J0330; J0780; J1100; J1200; J1650; J2270; J2405; J2543; J2704; J3010; J3475; Q9967

== ENCOUNTER → 2024-04-17 15:31 | Outpatient (CLI) | payer MEDICARE, OTHER, SELFPAY ==
[2023-10-20 22:02] VITALS: BMI 25.2
--- NOTE | 2024-04-17 15:32 | DI.ECHO.S_ITS ---
[facility] : : [address] : : [place] : : [id number] : : Phone: [phone] Echocardiogram Report + + :Name: SUSANNA BROOKS Study Date: 04/17/2024 Height: 65 in : :[facility] ReadingLocation: Weight: 140 lb : : Gender: Female BSA: 1.7 m2 : :: 1940 Age: 83 yrs BP: 138/79 mmHg: :Reason For Study: SHORTNESS OF BREATH : :Ordering Physician: MAGALYS ANDERSON Performed By: Hebert Hollins : :Referring: MAGALYS ANDERSON : + + Interpretation Summary 1. The left ventricular contractility is moderately compromised. Estimate ejection fraction is approximately 35 to 40%. There is akinesis of the mid to distal anterior and apical segments. Mild concentric LVH. Unable to comment on diastolic function. 2. The right ventricular contractility is normal. 3. All cardiac chambers are of normal size. 4. There is moderate to severe eccentric mitral regurgitation. 5. There is mild aortic insufficiency. 6. Mild tricuspid regurgitation with estimated pulmonary systolic artery pressures of 51 mmHg. 7. No obvious intracardiac shunts. 8. No obvious intracardiac masses nor thrombi. 9. No hemodynamically significant pericardial effusion. 10. Low right-sided filling pressures. Conclusion: Moderately compromised left ventricular systolic function with moderate to severe mitral regurgitation and mild aortic/tricuspid insufficiencies. Severely elevated pulmonary systolic artery pressures. When compared with previous echocardiogram, there is significant decline in the left ventricular systolic function with worsening of valvular regurgitation. Procedure: A two-dimensional transthoracic echocardiogram with color flow and Doppler was performed in limited views only. The study quality was technically good. There is no prior echocardiogram noted for this patient. The patient was in normal sinus rhythm during the exam. Left Ventricle: The left ventricle is normal in size. Left ventricular wall thickness is mildly increased. The ejection fraction is estimated to be 35- 40%. There are regional wall motion abnormalities as specified. Right Ventricle: The right ventricle is normal in size and function. Atria: The left atrial size is normal. Right atrial size is normal. Mitral Valve: The mitral valve is normal in structure and function. There is moderate to severe mitral regurgitation. Aortic Valve: The aortic valve is trileaflet. The aortic valve opens well. There is mild aortic regurgitation. Tricuspid Valve: The tricuspid valve is normal in structure and function. There is mild tricuspid regurgitation. The right ventricular systolic pressure is estimated to be at least 51 mmHg based on an estimated right atrial pressure of 3 mm Hg. Pulmonic Valve: The pulmonic valve is normal in structure and function. There is trace pulmonic regurgitation. Great Vessels: The IVC is of normal diameter and collapses greater than 50% with a sniff. This suggests a low right atrial pressure of 3 mm Hg. Pericardium/ Pleura There is no pericardial effusion. There is a small right-sided pleural effusion. There is a moderate left-sided pleural effusion. MMode/2D Measurements & Calculations LVIDd: 5.0 cm IVC diam: 1.6 cm LVIDs: 3.5 cm FS: 29.5 % IVSd: 1.1 cm LVPWd: 1.1 cm LV juarez. diameter/BSA (cm/m^2): 3.0 LV sys. diameter/BSA (cm/m^2): 2.1 Doppler Measurements & Calculations AI P1/2t: 412.0 msec MR ERO: 0.22 cm2 AI dec slope: 306.7 cm/sec2 TR max jahaira: 345.1 cm/sec MR PISA: 4.2 cm2 TR max P.6 mmHg MR flow rate: 153.8 cm3/sec MR PISA radius: 0.81 cm Reading Physician:
== END ==
PROVIDERS: PCP Nurse Practitioner; Referring Provider Internal Medicine; Visit Provider Internal Medicine
DX: J90 Pleural effusion, not elsewhere classified (principal); I08.3 Combined rheumatic disorders of mitral, aortic and tricuspid valves; R06.02 Shortness of breath
CPT/HCPCS: 93307

== ENCOUNTER → 2024-04-26 14:52 | Outpatient (CLI) | payer MEDICARE, OTHER, SELFPAY ==
[2023-10-20 22:02] VITALS: BMI 25.2
[2024-04-26 18:10] LABS: BUN Creatinine Ratio 12.6 (6-22); Blood Urea Nitrogen 12 mg/dL (7-17); Calcium 9.2 mg/dL (8.4-10.2); Carbon Dioxide 28 mmol/L (22-32); Chloride 99 mmol/L (98-107); Estimated Glomerular Filt Rate > 60 mL/min (>60); Glucose 121 mg/dL (80-110); HEMOLYSIS < 15 (0-50); Sodium 131 mmol/L (137-145)
[2024-04-26 18:14] LABS: NT-proBNP (BNP-Adult 18+) 3050 pg/mL (<450)
== END ==
PROVIDERS: PCP Nurse Practitioner; Referring Provider Internal Medicine; Visit Provider Internal Medicine
DX: R06.02 Shortness of breath (principal)
CPT/HCPCS: 36415; 80048; 83880

== ENCOUNTER → 2024-05-09 10:16 | Outpatient (CLI) | payer MEDICARE, OTHER, SELFPAY ==
[2023-10-20 22:02] VITALS: BMI 25.2
[2024-05-09 11:23] LABS: BUN Creatinine Ratio 15.3 (6-22); Blood Urea Nitrogen 15 mg/dL (7-17); Calcium 9.5 mg/dL (8.4-10.2); Carbon Dioxide 25 mmol/L (22-32); Chloride 104 mmol/L (98-107); Estimated Glomerular Filt Rate 58 mL/min (>60); Glucose 135 mg/dL (80-110); HEMOLYSIS < 15 (0-50); Potassium 3.9 mmol/L (3.4-5.1); Sodium 133 mmol/L (137-145)
== END ==
PROVIDERS: PCP Nurse Practitioner; Referring Provider Internal Medicine; Visit Provider Internal Medicine
DX: I50.20 Unspecified systolic (congestive) heart failure (principal)
CPT/HCPCS: 36415; 80048

== ENCOUNTER → 2024-05-29 07:16 | Outpatient (CLI) | payer MEDICARE, OTHER, SELFPAY ==
[2023-10-20 22:02] VITALS: BMI 25.2
--- NOTE | 2024-05-29 16:56 | DI.NM.S_ITS ---
DATE OF SERVICE: 05/29/2024 NUCLEAR CARDIOLOGY MYOCARDIAL PERFUSION STUDY PROCEDURE: Pharmacologic vasodilator stress and rest myocardial perfusion imaging with gating to assess ejection fraction and regional wall motion. ORDERING PROVIDER: Ruben Anderson MD. INDICATIONS: The patient is an 83-year-old female with atypical chest discomfort, exertional dyspnea, and an abnormal echocardiogram. CARDIAC STRESS: Per protocol, 0.4 mg of regadenoson was infused, augmented by walking on the treadmill, and had a normal hemodynamic response with minimal dyspnea but no chest discomfort. Her resting ECG shows sinus rhythm with T-wave inversions in the anterolateral leads but normal ST segments. With stress, there is some normalization of the T-wave abnormalities but no significant ST-segment shifts or arrhythmias. Per protocol, 26.9 millicuries of technetium-99m Myoview was injected and she was imaged 15 minutes later using a gated SPECT acquisition protocol. Earlier in the day while at rest, she had been injected with 12.5 millicuries of technetium-99m Myoview was imaged 15 minutes later, again using a gated SPECT acquisition protocol. FINDINGS: 1. Raw data. There is fairly good myocardial tracer uptake with minimal apparent breast shadows. The lung/heart ratio is normal at 0.28 with a normal TID ratio 0.75. 2. Quantitated gated SPECT: The calculated post-stress ejection fraction is 70%, although visually is likely more in the 40% to 50% range with severe hypokinesis to akinesis of the mid to distal anterior wall and apex, extending into the distal inferior wall. The resting ejection fraction is calculated at 60% but visually appears unchanged from the post-stress images, again with a EF likely around 40% to 50% with an anteroapical wall motion abnormality that is unchanged. The resting end-diastolic volume is at the upper limits of normal at 97 mL. 3. Myocardial perfusion imaging: Post-stress supine images show moderately reduced tracer activity in the mid portion of the anterior wall and anterior septum becoming a severe defect in the distal anterior wall, septum, and apex, including the very distal periapical segments. This defect persists on the prone images. The resting images show an identical perfusion pattern with minimal, if any, improvement in the perfusion defect. IMPRESSION: 1. Abnormal myocardial perfusion study. 2. 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 There is no compelling evidence for any significant myocardial ischemia. 3. Moderately reduced left ventricular systolic function with an anterior and anteroapical wall motion abnormality, consistent with previous infarction, and a resting end-diastolic volume at the upper limits of normal. 4. No angina with pharmacologic vasodilator stress and low level walking. Her resting ECG shows T-wave inversions in the anterolateral leads that normalize with stress, suggesting her infarction may be relatively recent but clinical correlation is needed. There were no arrhythmias. 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
== END ==
PROVIDERS: PCP Nurse Practitioner; Referring Provider Internal Medicine; Visit Provider Internal Medicine
DX: I50.21 Acute systolic (congestive) heart failure; R07.89 Other chest pain; I38 Endocarditis, valve unspecified; I11.0 Hypertensive heart disease with heart failure; R94.39 Abnormal result of other cardiovascular function study; R06.00 Dyspnea, unspecified
CPT/HCPCS: 78452; 93017; A9502; J2785

== ENCOUNTER → 2024-07-10 12:03 | Outpatient (CLI) | payer MEDICARE, OTHER, SELFPAY ==
[2023-10-20 22:02] VITALS: BMI 25.2
[2024-07-10 13:14] LABS: Add Manual Diff / Slide Review NO; Basophils Absolute Auto 100 /uL (0-100); Basophils Percent Auto 0.8 % (0-2); Eosinophils Absolute Auto 100 /uL (0-450); Eosinophils Percent Auto 1.6 % (2-4); Hematocrit 38.2 % (36-46); Hemoglobin 12.8 g/dL (12.0-16.0); Lymphocytes Absolute Auto 2200 /uL (1100-4500); Lymphocytes Percent Auto 32.2 % (25-40); Mean Corpuscular HGB Conc 33.4 % (30-36); Mean Corpuscular Hemoglobin 27.3 PG (26-34); Mean Corpuscular Volume 81.7 fL (80-100); Monocytes Absolute Auto 600 /uL (0-900); Monocytes Percent Auto 8.9 % (3-14); Neutrophils Absolute Auto 3800 /uL (1500-7000); Neutrophils Percent Auto 56.5 % (50-75); Platelet Count 219 X10^3/uL (150-400); Red Blood Cell Count 4.68 X10^6/uL (4.0-5.2); Red Cell Distribution Width 16.3 % (11.6-14.8); White Blood Cell Count 6.7 X10^3/uL (4.5-11.0)
[2024-07-10 14:10] LABS: BUN Creatinine Ratio 14.6 (6-22); Blood Urea Nitrogen 14 mg/dL (7-17); Carbon Dioxide 24 mmol/L (22-32); Chloride 105 mmol/L (98-107); Estimated Glomerular Filt Rate 59 mL/min (>60); Glucose 91 mg/dL (80-110); HEMOLYSIS < 15 (0-50); Potassium 3.8 mmol/L (3.4-5.1); Sodium 136 mmol/L (137-145)
== END ==
LOC: LAB 12:04
PROVIDERS: PCP Nurse Practitioner; Referring Provider Internal Medicine; Visit Provider Internal Medicine
DX: I50.20 Unspecified systolic (congestive) heart failure (principal)
CPT/HCPCS: 36415; 80048; 85025

== ENCOUNTER → 2024-08-24 08:26 | Outpatient (CLI) | payer MEDICARE, OTHER, SELFPAY ==
[2023-10-20 22:02] VITALS: BMI 25.2
[2024-08-24 09:36] LABS: Add Manual Diff / Slide Review NO; Basophils Absolute Auto 100 /uL (0-100); Basophils Percent Auto 1.4 % (0-2); Eosinophils Absolute Auto 100 /uL (0-450); Eosinophils Percent Auto 2.4 % (2-4); Hematocrit 40.4 % (36-46); Hemoglobin 13.3 g/dL (12.0-16.0); Lymphocytes Absolute Auto 1600 /uL (1100-4500); Lymphocytes Percent Auto 35.2 % (25-40); Mean Corpuscular Hemoglobin 28.1 PG (26-34); Monocytes Absolute Auto 500 /uL (0-900); Monocytes Percent Auto 10.1 % (3-14); Neutrophils Absolute Auto 2400 /uL (1500-7000); Neutrophils Percent Auto 50.9 % (50-75); Platelet Count 258 X10^3/uL (150-400); Red Blood Cell Count 4.75 X10^6/uL (4.0-5.2); Red Cell Distribution Width 15.5 % (11.6-14.8); White Blood Cell Count 4.6 X10^3/uL (4.5-11.0)
[2024-08-24 10:14] LABS: Alanine Aminotransferase 17 IU/L (<35); Albumin 4.2 g/dL (3.5-5.0); Albumin Globulin Ratio 1.4 (1.0-2.8); Alkaline Phosphatase 83 U/L (38-126); Aspartate Aminotransferase 22 IU/L (14-36); BUN Creatinine Ratio 14.7 (6-22); Bilirubin Total 1.1 mg/dL (0.2-1.3); Blood Urea Nitrogen 14 mg/dL (7-17); Calcium 9.6 mg/dL (8.4-10.2); Carbon Dioxide 24 mmol/L (22-32); Chloride 103 mmol/L (98-107); Cholesterol 162 mg/dL (140-199); Estimated Glomerular Filt Rate > 60 mL/min (>60); Globulin 3.1 g/dL (1.7-4.1); Glucose 95 mg/dL (80-110); HDL Cholesterol 55 mg/dL (40-60); HEMOLYSIS < 15 (0-50); LDL Cholesterol Calculated 80 mg/dL (<100); Potassium 3.9 mmol/L (3.4-5.1); Sodium 136 mmol/L (137-145); Total Protein 7.3 g/dL (6.3-8.2); Triglycerides 133 mg/dL (35-150)
[2024-08-24 10:31] LABS: Free T4, Direct Thyroxine 0.85 ng/dL (0.78-2.19)
[2024-08-24 10:45] LABS: Thyroid Stimulating Hormone 2.62 uIU/mL (0.47-4.68)
[2024-08-24 16:00] LABS: Hemoglobin A1C% w Est Avg Glu 5.3 % (4.0-6.0)
== END ==
PROVIDERS: PCP Nurse Practitioner; Referring Provider Nurse Practitioner; Visit Provider Nurse Practitioner
DX: I50.9 Heart failure, unspecified (principal); R73.03 Prediabetes; D64.9 Anemia, unspecified; E78.5 Hyperlipidemia, unspecified; R53.83 Other fatigue
CPT/HCPCS: 36415; 80053; 80061; 83036; 84439; 84443; 85025

== ENCOUNTER → 2024-09-21 16:05 | Outpatient (CLI) | payer MEDICARE, OTHER, SELFPAY ==
[2023-10-20 22:02] VITALS: BMI 25.2
--- NOTE | 2024-09-21 16:06 | DI.ECHO.S_ITS ---
[facility]---------+ [facility] : : [address] : : [place] : : [id number] : : Phone: [phone] Echocardiogram Report + + :Name: SUSANNA BROOKS Study Date: 09/21/2024 Height: 65 in : :[facility] ReadingLocation: Weight: 158 lb : : Gender: Female BSA: 1.8 m2 : :: 1940 Age: 83 yrs BP: 145/85 mmHg: :Reason For Study: Heart failure : :Ordering Physician: MAGALYS ANDERSON Performed By: Solomon Ortiz : :Referring: MAGALYS ANDERSON : + + Interpretation Summary 1. The left ventricular contractility is mildly compromised. Estimate ejection fraction is approximately 40 to 45%. There is moderate hypokinesis of the distal anterior segment with akinesis of the apex. No LVH. Indeterminate diastolic function. 2. The right ventricular contractility is normal. 3. All cardiac chambers are of normal size. 4. Moderate to severe eccentric mitral regurgitation. 5. Trace to mild aortic insufficiency. 6. Trace to mild tricuspid regurgitation with estimated pulmonary systolic artery pressures of 25 mmHg. 7. No obvious intracardiac shunts. 8. No obvious intracardiac masses nor thrombi. 9. Low right-sided filling pressures. Conclusion: Mildly compromised left ventricular systolic function with moderate to severe mitral regurgitation. When compared with previous echocardiogram, there is improvement in the left ventricular systolic function but no changes in the degree of mitral regurgitation. Estimated pulmonary systolic artery pressures have decreased as well. Procedure: A two-dimensional transthoracic echocardiogram with color flow and Doppler was performed. The study quality was technically adequate. Comparison is made with the echocardiogram of 04/17/2024. The patient was in normal sinus rhythm during the exam. Left Ventricle: The left ventricle is normal in size. Left ventricular wall thickness is borderline increased. The ejection fraction is estimated to be 40-45%. This is improved compared to the previous study. Right Ventricle: The right ventricle is normal in size and function. Atria: Both atria are normal in size. There is no Doppler evidence for an interatrial shunt. Mitral Valve: There is moderate mitral annular calcification. The mitral valve leaflets appear moderately thickened, but open well. There is no mitral valve stenosis. There is moderate to severe mitral regurgitation. Aortic Valve: The aortic valve is trileaflet. There is mild aortic valve sclerosis. The aortic valve opens well. There is no aortic valve stenosis. There is mild aortic regurgitation. Tricuspid Valve: The tricuspid valve is not well visualized, but is grossly normal. There is mild tricuspid regurgitation. The right ventricular systolic pressure is estimated to be at least 25 mmHg based on an estimated right atrial pressure of 3 mm Hg. Pulmonic Valve: The pulmonic valve is not well seen, but is grossly normal. There is trace pulmonic regurgitation. Great Vessels: The aortic root is normal size. The ascending aorta is normal in size. The aortic arch could not be visualized. The IVC is of normal diameter and collapses greater than 50% with a sniff. This suggests a low right atrial pressure of 3 mm Hg. Pericardium/ Pleura There is no pericardial effusion. MMode/2D Measurements & Calculations LVIDd: 4.4 cm LVOT diam: 2.0 cm LVIDs: 3.4 cm Ao root diam: 3.3 cm FS: 23.3 % asc Aorta Diam: 3.0 cm EPSS: 0.57 cm IVSd: 1.0 cm LVPWd: 1.1 cm LV juarez. diameter/BSA (cm/m^2): 2.5 LV sys. diameter/BSA (cm/m^2): 1.9 LA A2 area: 16.6 cm2 RA long axis: 4.9 cm LA A4 area: 18.2 cm2 RA area: 11.5 cm2 LA length (vol): 5.3 cm RA vol: 23.1 ml LA vol: 48.1 ml RA : 12.9 ml/m2 LA vol index: 26.9 ml/m2 IVC diam: 1.6 cm RVD1 (basal): 1.9 cm RVD2 (mid): 1.4 cm TAPSE: 1.6 cm Doppler Measurements & Calculations Ao V2 max: 176.2 cm/sec LVOT Max Toan: 86.6 cm/sec Ao V2 mean: 126.7 cm/sec LV V1 max P.0 mmHg Ao max P.4 mmHg LV V1 VTI: 17.0 cm Ao mean P.3 mmHg SALINA(I,D): 1.4 cm2 Ao V2 VTI: 37.6 cm SALINA(V,D): 1.5 cm2 sev ratio: 0.45 SALINA indexed to BSA (cm^2/m^2): 0.76 AI P1/2t: 513.4 msec AI dec slope: 219.6 cm/sec2 MV E max toan: 67.1 cm/sec TR max toan: 232.9 cm/sec MV A max toan: 133.0 cm/sec TR max P.7 mmHg MV E/A: 0.50 PA V2 max: 85.5 cm/sec Med Peak E' Toan: 3.1 cm/sec PA V2 mean: 63.7 cm/sec E/E' med: 21.6 PA mean P.7 mmHg Lat Peak E' Toan: 6.2 cm/sec PA pr(Accel): 36.6 mmHg E/E' lat: 10.9 E/e' average: 16.3 MV dec time: 0.14 sec MVA(VTI): 1.9 cm2 MV V2 mean: 69.9 cm/sec MR VTI: 197.2 cm MV mean P.4 mmHg MV V2 VTI: 26.7 cm SV(LVOT): 51.3 ml Reading Physician:PM
== END ==
LOC: ECHO 16:05
PROVIDERS: PCP Nurse Practitioner; Referring Provider Internal Medicine; Visit Provider Internal Medicine
DX: I50.22 Chronic systolic (congestive) heart failure (principal); I08.3 Combined rheumatic disorders of mitral, aortic and tricuspid valves
CPT/HCPCS: 93306